=== PATIENT | male | born 1990 | race American Indian/Alaskan Native ===

== ENCOUNTER 2017-10-25 04:07 | Emergency (ER) | payer SELFPAY ==
[2017-10-25 05:08] VITALS: BP 108/55
--- NOTE | 2017-10-25 06:46 | Emergency Department Report ---
ED Rash HPI - HPI Chief Complaint: Skin Rash Stated Complaint: RASH ON NECK Time Seen by Provider: 10/25/17 06:42 Duration: 1-2 months Location: Neck Suspected Cause: Unknown Rash Symptoms: Yes Itching, No Facial Swelling, No Tongue/Oral Swelling, No Breathing Difficulties, No Choking Sensation, No Wheezing/Dyspnea, No Peeling, No Blistering, No Fever, No Lightheaded, No Malaise, No Myalgias Severity: mild Other History: cc of rash on back of neck x 2 months, states hes used hc creams wity no relief, states it itches intermittently and ibanez when sweating. pt stateas one of his dreds came out from the rash on the back of his scalp. he denies fever,chills,n/v/d. ED Review of Systems ROS: Stated complaint: RASH ON NECK Other details as noted in HPI Constitutional: denies: chills, fever Eyes: denies: eye pain, eye discharge, vision change ENT: denies: ear pain, throat pain Respiratory: denies: cough, shortness of breath, wheezing Cardiovascular: denies: chest pain, palpitations Endocrine: no symptoms reported Gastrointestinal: denies: abdominal pain, nausea, diarrhea Genitourinary: denies: urgency, dysuria Musculoskeletal: denies: back pain, joint swelling, arthralgia Skin: rash, pruritus. denies: lesions Neurological: denies: headache, weakness, paresthesias Psychiatric: denies: anxiety, depression Hematological/Lymphatic: denies: easy bleeding, easy bruising ED Past Medical Hx - Past Medical History Previous Medical History?: Yes Hx Congestive Heart Failure: No Hx Diabetes: No Hx Asthma: Yes Hx COPD: No Hx HIV: No - Surgical History Past Surgical History?: No - Social History Smoking Status: Former Smoker Substance Use Type: Alcohol, Marijuana - Medications Home Medications: Home Medications Medication Instructions Recorded Confirmed Last Taken Type ALBUTEROL NEB's [Proventil 0.083% 2.5 mg IH Q4H PRN #25 neb 03/25/16 Unknown Rx NEBS] Butalb/Acetamin/Caff 50-325-40 1 tab PO Q8HR PRN #12 tablet 03/25/16 Unknown Rx [Fioricet] Fluticasone (Nf) [Flovent Hfa(Nf)] 2 puff IH BID #1 inh 03/25/16 Unknown Rx Prednisone [predniSONE 5 mg (6-Day 5 mg PO .TAPER #1 tab.ds.pk 03/25/16 Unknown Rx Pack, 21 Tabs)] Hydroxyzine HCl 10 mg PO QHS #20 tablet 10/25/17 Unknown Rx Nystatin/Triamcin 1 applic TP BID 1 Days #1 tube 10/25/17 Unknown Rx [Nystatin-Triamcinolone Ointm] predniSONE [Deltasone] 10 mg PO QDAY #4 tab 10/25/17 Unknown Rx Rash Exam - Exam General: Vital signs noted. No distress. Alert and acting appropriately. HEENT: No Periorbital Edema, No Conjuctival Injection, No Chemosis, No Perioral Edema, No Tongue Edema, No Uvular Edema, No Compromised Airway, No Drooling Lungs: Yes Good Air Exchange, No Wheezes, No Ronchi, No Stridor, No Cough, No Labored Respirations, No Retractions, No Use of Accessory Muscles, No Other Abnormal Lung Sounds Heart: Yes Regular, No Murmur Front/Back of Body, Lg (Color): 1 - 2-3 grouped hypopigmented, raised border, non tender rash consistent with tinea Skin: Yes Maculopapular Rash, Yes Other (hypopigmented, raised with borders, non erythematous), No Urticarial Rash, No Morbilliform rash, No Bulla(e), No Excoriations, No Weeping, No Tenderness, No Erythema, No Edema, No Encrustations ED Course Vital Signs 10/25/17 10/25/17 04:41 05:07 Temperature 97.9 F Pulse Rate 61 Respiratory 18 Rate Blood Pressure 108/55 O2 Sat by Pulse 100 Oximetry ED Medical Decision Making - Medical Decision Making 27 y,o male presents with tinea coporis rash ED Course: Discussed with pt application of antifungal to get rid of rash Discuussed f/u with pcp in 1 week Discussed home meds VSS , pt is in no acute distress Discussed dermatology referral if symptoms persist with treatment . Discussed rt ED in any worsening or new onset of sx Critical care attestation.: If time is entered above; I have spent that time in minutes in the direct care of this critically ill patient, excluding procedure time. ED Disposition Clinical Impression: Tinea corporis Disposition: DC- TO HOME OR SELFCARE Is pt being admited?: No Does the pt Need Aspirin: No Condition: Stable Instructions: Tinea Corporis (ED), Tinea Capitis (ED), Antifungals (On the skin ) Additional Instructions: Follow up with pcp as discussed Take medication as prescribed If worsening symptoms return to ER Prescriptions: Hydroxyzine HCl 10 mg PO QHS #20 tablet Nystatin/Triamcin [Nystatin-Triamcinolone Ointm] 1 applic TP BID 1 Days #1 tube predniSONE [Deltasone] 10 mg PO QDAY #4 tab Referrals: PRIMARY CARE, [Primary Care Provider] - 3-5 Days [facility] [Outside] - 3-5 Days [facility] [Outside] - 3-5 Days ELISHA LOVE MD [Staff Physician] - 3-5 Days [facility] [Provider Group] - 3-5 Days Forms: Work/School Release Form(ED) Time of Disposition: 06:53
== END 2017-10-25 07:05 | disposition home or self-care (01) ==
LOC: ED 04:07
DX: B35.4 Tinea corporis (principal); J45.909 Unspecified asthma, uncomplicated; F12.10 Cannabis abuse, uncomplicated
CPT/HCPCS: 99282

== ENCOUNTER 2019-01-15 04:45 | Emergency (ER) | payer SELFPAY ==
[2019-01-15 04:50] VITALS: BP 127/90
[2019-01-15] MEDS ORDERED: DUONEB *Not for PRN Use IH ONE ×2 (05:00→05:04)
[2019-01-15] MEDS ORDERED: TYLENOL PO ONE (05:00)
[2019-01-15] MEDS ORDERED: SOLU-Medrol IM ONE (05:00)
[2019-01-15] MEDS ORDERED: TYLENOL ONE (05:03)
[2019-01-15] MEDS ORDERED: SOLU-Medrol ONE (05:05)
--- NOTE | 2019-01-15 05:39 | XRay Report ---
CHEST 2 VIEWS INDICATION / CLINICAL INFORMATION: dyspnea, asthma. COMPARISON: None FINDINGS: SUPPORT DEVICES: None. HEART / MEDIASTINUM: No significant abnormality. LUNGS / PLEURA: Hyperinflation of the lungs No pneumothorax. ADDITIONAL FINDINGS: No significant additional findings. IMPRESSION: Hyperinflation of the lungs. No other significant abnormality. Signer Name: Gilson Aguila MD FACR Signed: 01/15/2019 5:34 AM Workstation Name: [id number]
--- NOTE | 2019-01-15 05:46 | Emergency Department Report ---
ED General Adult HPI - General Chief complaint: Dyspnea/Respdistress Stated complaint: ASTHMA Time Seen by Provider: 01/15/19 05:00 Source: patient Mode of arrival: Ambulatory Limitations: No Limitations - History of Present Illness Initial comments: Patient is a pleasant 28-year-old -[place] male with a history of chronic asthma who presents to the ED with acute onset persistent shortness of breath, wheezing and dry cough for the last 2 hours. Patient states that he was in his usual state of health when he got into an argument with his girlfriend and developed intermittent shortness of breath and wheezing. Patient states that he does not have any bronchodilators at home whether a nebulizer or inhaler. Patient himself admits to continuing to smoke cigarettes despite his chronic asthma condition. Patient also complains of severe headache. Patient denies fever, chills, nausea, vomiting, chest pain, dizziness, change in vision, nasal and sinus congestion, sore throat, headache, abdominal pain, diaphoresis or neck pain. MD Complaint: asthma attack, dyspnea, dry cough, wheezing -: Sudden, hour(s) (2) Location: chest Radiation: non-radiation Severity scale (0 -10): 5 Quality: other (tightness) Consistency: constant Improves with: none Worsens with: none Associated Symptoms: denies other symptoms, cough, headaches, shortness of breath. denies: confusion, chest pain, diaphoresis, fever/chills, loss of appetite, malaise, nausea/vomiting, rash, seizure, syncope, weakness Treatments Prior to Arrival: none - Related Data Previous Rx's Medication Instructions Recorded Last Taken Type Butalb/Acetamin/Caff 50-325-40 1 tab PO Q8HR PRN #12 tablet 03/25/16 Unknown Rx [Fioricet] Fluticasone (Nf) [Flovent Hfa(Nf)] 2 puff IH BID #1 inh 03/25/16 Unknown Rx Prednisone [predniSONE 5 mg (6-Day 5 mg PO .TAPER #1 tab.ds.pk 03/25/16 Unknown Rx Pack, 21 Tabs)] Nystatin/Triamcin 1 applic TP BID 1 Days #1 tube 10/25/17 Unknown Rx [Nystatin-Triamcinolone Ointm] hydrOXYzine HCl [Hydroxyzine HCl] 10 mg PO QHS #20 tablet 10/25/17 Unknown Rx predniSONE [Deltasone] 10 mg PO QDAY #4 tab 10/25/17 Unknown Rx ALBUTEROL Inhaler(NF) [VENTOLIN 2 puff IH Q4-6H PRN #1 inha 05/01/18 Unknown Rx Inhaler(NF)] ALBUTEROL Inhaler (OR & NICU) 1 - 2 puff IH Q6H PRN #1 inhalation 01/15/19 Unknown Rx [ProAir HFA Inhaler] ALBUTEROL NEB's [Proventil 0.083% 2.5 mg IH Q4H PRN #75 neb 01/15/19 Unknown Rx NEBS] Prednisone [predniSONE 10 mg 10 mg PO .TAPER #21 tab.ds.pk 01/15/19 Unknown Rx (6-Day Pack, 21 Tabs)] Allergies Allergy/AdvReac Type Severity Reaction Status Date / Time amoxicillin AdvReac Swelling Verified 06/15/14 09:46 shellfish derived AdvReac Swelling Verified 06/15/14 09:46 ED Review of Systems ROS: Stated complaint: ASTHMA Other details as noted in HPI Constitutional: denies: chills, fever Eyes: denies: eye pain, eye discharge, vision change ENT: denies: ear pain, throat pain Respiratory: cough, shortness of breath, wheezing Cardiovascular: denies: chest pain, palpitations Endocrine: no symptoms reported Gastrointestinal: denies: abdominal pain, nausea, diarrhea Genitourinary: denies: urgency, dysuria Musculoskeletal: denies: back pain, joint swelling, arthralgia Skin: denies: rash, lesions Neurological: headache. denies: weakness, paresthesias Psychiatric: denies: anxiety, depression Hematological/Lymphatic: denies: easy bleeding, easy bruising ED Past Medical Hx - Past Medical History Previous Medical History?: Yes Hx Congestive Heart Failure: No Hx Diabetes: No Hx Asthma: Yes Hx COPD: No Hx HIV: No - Surgical History Past Surgical History?: No - Social History Smoking Status: Former Smoker Substance Use Type: Alcohol, Marijuana - Medications Home Medications: Home Medications Medication Instructions Recorded Confirmed Last Taken Type Butalb/Acetamin/Caff 50-325-40 1 tab PO Q8HR PRN #12 tablet 03/25/16 Unknown Rx [Fioricet] Fluticasone (Nf) [Flovent Hfa(Nf)] 2 puff IH BID #1 inh 03/25/16 Unknown Rx Prednisone [predniSONE 5 mg (6-Day 5 mg PO .TAPER #1 tab.ds.pk 03/25/16 Unknown Rx Pack, 21 Tabs)] Nystatin/Triamcin 1 applic TP BID 1 Days #1 tube 10/25/17 Unknown Rx [Nystatin-Triamcinolone Ointm] hydrOXYzine HCl [Hydroxyzine HCl] 10 mg PO QHS #20 tablet 10/25/17 Unknown Rx predniSONE [Deltasone] 10 mg PO QDAY #4 tab 10/25/17 Unknown Rx ALBUTEROL Inhaler(NF) [VENTOLIN 2 puff IH Q4-6H PRN #1 inha 05/01/18 Unknown Rx Inhaler(NF)] ALBUTEROL Inhaler (OR & NICU) 1 - 2 puff IH Q6H PRN #1 inhalation 01/15/19 Unknown Rx [ProAir HFA Inhaler] ALBUTEROL NEB's [Proventil 0.083% 2.5 mg IH Q4H PRN #75 neb 01/15/19 Unknown Rx NEBS] Prednisone [predniSONE 10 mg 10 mg PO .TAPER #21 tab.ds.pk 01/15/19 Unknown Rx (6-Day Pack, 21 Tabs)] ED Physical Exam - General Limitations: No Limitations General appearance: alert, in no apparent distress - Head Head exam: Present: atraumatic, normocephalic, normal inspection - Eye Eye exam: Present: normal appearance, PERRL, EOMI Pupils: Present: normal accommodation - ENT ENT exam: Present: normal exam, normal orophraynx, mucous membranes moist, TM's normal bilaterally, normal external ear exam - Neck Neck exam: Present: normal inspection, full ROM - Respiratory Respiratory exam: Present: normal lung sounds bilaterally, wheezes. Absent: respiratory distress, rhonchi, stridor, chest wall tenderness, accessory muscle use, decreased breath sounds, prolonged expiratory - Cardiovascular Cardiovascular Exam: Present: regular rate, normal rhythm, normal heart sounds. Absent: systolic murmur, diastolic murmur, rubs, gallop - GI/Abdominal GI/Abdominal exam: Present: soft, normal bowel sounds. Absent: tenderness, guarding, rebound, hyperactive bowel sounds - Rectal Rectal exam: Present: deferred - Extremities Exam Extremities exam: Present: normal inspection, full ROM, normal capillary refill - Back Exam Back exam: Present: normal inspection, full ROM. Absent: tenderness, CVA tenderness (R), CVA tenderness (L), muscle spasm, paraspinal tenderness, vertebral tenderness - Neurological Exam Neurological exam: Present: alert, oriented X3, CN II-XII intact, normal gait, reflexes normal - Psychiatric Psychiatric exam: Present: normal affect, normal mood - Skin Skin exam: Present: warm, dry, intact, normal color. Absent: rash ED Course Vital Signs 01/15/19 04:48 Temperature 97.3 F L Pulse Rate 75 Respiratory 20 Rate Blood Pressure 127/90 O2 Sat by Pulse 99 Oximetry - Reevaluation(s) Reevaluation #1: 01/15/19 05:59 This is a 28-year-old -[place] male with a history of chronic asthma who presented to the ED with acute exacerbation of his chronic asthma, characterized by shortness of breath, dry cough and wheezing. In the ED patient is alert and oriented 3 and is not in any distress with normal vital signs. Patient received DuoNeb treatment in the ED with Solu-Medrol and Tylenol for headache. Chest x-ray shows no acute cardiopulmonary abnormalities. On reevaluation, patient's wheezing has resolved, and air movement within the lungs have normalized. Patient was discharged home with a prescription for albuterol inhaler and nebulizers, as well as Medrol Dosepak and advised to follow-up with his primary care physician in [place] to 3-5 days for reevaluation or return to the ED immediately if symptoms get worse. ED Medical Decision Making - Radiology Data Radiology results: report reviewed, image reviewed Chest x-ray: No acute cardiopulmonary abnormalities - Medical Decision Making This is a 28-year-old -[place] male with a history of chronic asthma who presented to the ED with acute exacerbation of his chronic asthma, characterized by shortness of breath, dry cough and wheezing. In the ED patient is alert and oriented 3 and is not in any distress with normal vital signs. Patient received DuoNeb treatment in the ED with Solu-Medrol and Tylenol for headache. Chest x-ray shows no acute cardiopulmonary abnormalities. On reevaluation, patient's wheezing has resolved, and air movement within the lungs have normalized. Patient was discharged home with a prescription for albuterol inhaler and nebulizers, as well as Medrol Dosepak and advised to follow-up with his primary care physician in [place] to 3-5 days for reevaluation or return to the ED immediately if symptoms get worse. - Differential Diagnosis asthma attack; acute bronchitis; dyspnea, pneumonia Critical care attestation.: If time is entered above; I have spent that time in minutes in the direct care of this critically ill patient, excluding procedure time. ED Disposition Clinical Impression: Shortness of breath, Acute asthmatic bronchitis, Anxiety as acute reaction to exceptional stress Asthma attack Qualifiers: Asthma severity: mild Asthma persistence: intermittent Qualified Code(s): J45.21 - Mild intermittent asthma with (acute) exacerbation Acute bronchitis Qualifiers: Bronchitis organism: unspecified organism Qualified Code(s): J20.9 - Acute b ronchitis, unspecified Disposition: - TO HOME OR SELFCARE Is pt being admited?: No Does the pt Need Aspirin: No Condition: Stable Instructions: Asthma (ED), Acute Bronchitis (ED), Dyspnea (ED) Additional Instructions: TAKE MEDICATIONS WITH FOOD DRINK PLENTY OF FLUIDS AND FOLLOW UP WITH YOUR PRIMARY CARE PHYSICIAN ADVISED. RETURN TO THE ED IMMEDIATELY IF SYMPTOMS GET WORSE. Prescriptions: Prednisone [predniSONE 10 mg (6-Day Pack, 21 Tabs)] 10 mg PO .TAPER #21 tab.ds.pk ALBUTEROL Inhaler (OR & NICU) [ProAir HFA Inhaler] 1 - 2 puff IH Q6H PRN #1 inhalation PRN Reason: Shortness Of Breath ALBUTEROL NEB's [Proventil 0.083% NEBS] 2.5 mg IH Q4H PRN #75 neb PRN Reason: Shortness Of Breath Referrals: ERASMO DUARTE MD [Primary Care Provider] - 3-5 Days Time of Disposition: 05:43 Print Language: BELARUSIAN
== END 2019-01-15 06:11 | disposition home or self-care (01) ==
LOC: ED 04:45
DX: J45.909 Unspecified asthma, uncomplicated (principal); J20.9 Acute bronchitis, unspecified; F41.9 Anxiety disorder, unspecified; F12.10 Cannabis abuse, uncomplicated; Z87.891 Personal history of nicotine dependence; Z79.899 Other long term (current) drug therapy; Z91.013 Allergy to seafood; Z88.1 Allergy status to other antibiotic agents
CPT/HCPCS: 71046; 96372; 99283; J2930

== ENCOUNTER 2019-05-02 05:23 | Emergency (ER) | payer SELFPAY ==
[2019-05-02 05:29] VITALS: BP 141/72
[2019-05-02] MEDS ORDERED: IPRATROPIUM/ALBUTEROL SULFATE 3 ML AMPUL.NEB IH ONE (05:30)
[2019-05-02] MEDS ORDERED: diphenhydrAMINE 25 MG CAP PO STA (05:52)
[2019-05-02] MEDS ORDERED: predniSONE 50 MG TAB PO STA (05:52)
--- NOTE | 2019-05-02 06:27 | Emergency Department Report ---
ED Asthma HPI - General Chief Complaint: Adult Asthma Stated Complaint: ASTHMA Time Seen by Provider: 05/02/19 05:48 Source: patient Mode of arrival: Ambulatory Limitations: No Limitations - History of Present Illness Initial Comments: 28-year-old -[place] male that ran out of his asthma medication was sleeping at home when he woke up to 2 a sensation of tightness in the chest with wheezing and mild nonproductive coughing. No fever, chills, sweats no hemoptysis no hematemesis nor hematochezia. No palpitations no nausea or vomiting. He reports not been around any noxious chemicals may have stimulated of the wheezing. He feels if he receives a a refill of his medication he will be fine MD Complaint: shortness of breath, wheezing Asthma History: childhood onset Severity: mild, moderate Context: ran out of meds - Related Data Previous Rx's Medication Instructions Recorded Last Taken Type Butalb/Acetamin/Caff 50-325-40 1 tab PO Q8HR PRN #12 tablet 03/25/16 Unknown Rx [Fioricet] Fluticasone (Nf) [Flovent Hfa(Nf)] 2 puff IH BID #1 inh 03/25/16 Unknown Rx Prednisone [predniSONE 5 mg (6-Day 5 mg PO .TAPER #1 tab.ds.pk 03/25/16 Unknown Rx Pack, 21 Tabs)] Nystatin/Triamcin 1 applic TP BID 1 Days #1 tube 10/25/17 Unknown Rx [Nystatin-Triamcinolone Ointm] hydrOXYzine HCl [Hydroxyzine HCl] 10 mg PO QHS #20 tablet 10/25/17 Unknown Rx predniSONE [Deltasone] 10 mg PO QDAY #4 tab 10/25/17 Unknown Rx ALBUTEROL Inhaler(NF) [VENTOLIN 2 puff IH Q4-6H PRN #1 inha 05/01/18 Unknown Rx Inhaler(NF)] ALBUTEROL Inhaler (OR & NICU) 1 - 2 puff IH Q6H PRN #1 inhalation 01/15/19 Unknown Rx [ProAir HFA Inhaler] ALBUTEROL NEB's [Proventil 0.083% 2.5 mg IH Q4H PRN #75 neb 01/15/19 Unknown Rx NEBS] Prednisone [predniSONE 10 mg 10 mg PO .TAPER #21 tab.ds.pk 01/15/19 Unknown Rx (6-Day Pack, 21 Tabs)] ALBUTEROL Inhaler (OR & NICU) 2 puff IH QID PRN #1 inhalation 05/02/19 Unknown Rx [ProAir HFA Inhaler] Montelukast [Singulair] 10 mg PO QPM #14 tablet 05/02/19 Unknown Rx predniSONE [Deltasone] 50 mg PO QDAY #5 tab 05/02/19 Unknown Rx Allergies Allergy/AdvReac Type Severity Reaction Status Date / Time amoxicillin AdvReac Swelling Verified 06/15/14 09:46 shellfish derived AdvReac Swelling Verified 06/15/14 09:46 ED Review of Systems ROS: Stated complaint: ASTHMA Other details as noted in HPI Comment: All other systems reviewed and negative ED Past Medical Hx - Past Medical History Hx Congestive Heart Failure: No Hx Diabetes: No Hx Asthma: Yes Hx COPD: No Hx HIV: No - Surgical History Past Surgical History?: No - Social History Smoking Status: Never Smoker - Medications Home Medications: Home Medications Medication Instructions Recorded Confirmed Last Taken Type Butalb/Acetamin/Caff 50-325-40 1 tab PO Q8HR PRN #12 tablet 03/25/16 Unknown Rx [Fioricet] Fluticasone (Nf) [Flovent Hfa(Nf)] 2 puff IH BID #1 inh 03/25/16 Unknown Rx Prednisone [predniSONE 5 mg (6-Day 5 mg PO .TAPER #1 tab.ds.pk 03/25/16 Unknown Rx Pack, 21 Tabs)] Nystatin/Triamcin 1 applic TP BID 1 Days #1 tube 10/25/17 Unknown Rx [Nystatin-Triamcinolone Ointm] hydrOXYzine HCl [Hydroxyzine HCl] 10 mg PO QHS #20 tablet 10/25/17 Unknown Rx predniSONE [Deltasone] 10 mg PO QDAY #4 tab 10/25/17 Unknown Rx ALBUTEROL Inhaler(NF) [VENTOLIN 2 puff IH Q4-6H PRN #1 inha 05/01/18 Unknown Rx Inhaler(NF)] ALBUTEROL Inhaler (OR & NICU) 1 - 2 puff IH Q6H PRN #1 inhalation 01/15/19 Unknown Rx [ProAir HFA Inhaler] ALBUTEROL NEB's [Proventil 0.083% 2.5 mg IH Q4H PRN #75 neb 01/15/19 Unknown Rx NEBS] Prednisone [predniSONE 10 mg 10 mg PO .TAPER #21 tab.ds.pk 01/15/19 Unknown Rx (6-Day Pack, 21 Tabs)] ALBUTEROL Inhaler (OR & NICU) 2 puff IH QID PRN #1 inhalation 05/02/19 Unknown Rx [ProAir HFA Inhaler] Montelukast [Singulair] 10 mg PO QPM #14 tablet 05/02/19 Unknown Rx predniSONE [Deltasone] 50 mg PO QDAY #5 tab 05/02/19 Unknown Rx ED Physical Exam - General Limitations: No Limitations General appearance: alert, in no apparent distress, other (no respiratory distress speaking in full sentences) - Head Head exam: Present: atraumatic, normocephalic - Eye Eye exam: Present: normal appearance, PERRL, EOMI - ENT ENT exam: Present: mucous membranes moist - Neck Neck exam: Present: normal inspection - Respiratory Respiratory exam: Present: normal lung sounds bilaterally, wheezes. Absent: respiratory distress, rales, rhonchi, stridor, chest wall tenderness, accessory muscle use, decreased breath sounds - Cardiovascular Cardiovascular Exam: Present: regular rate, normal rhythm. Absent: systolic murmur, diastolic murmur, rubs, gallop - GI/Abdominal GI/Abdominal exam: Present: soft, normal bowel sounds - Rectal Rectal exam: Present: deferred - Extremities Exam Extremities exam: Present: normal inspection, full ROM, normal capillary refill. Absent: pedal edema - Back Exam Back exam: Present: normal inspection. Absent: CVA tenderness (R), CVA tenderness (L) - Neurological Exam Neurological exam: Present: alert, oriented X3, CN II-XII intact, normal gait - Psychiatric Psychiatric exam: Present: normal affect, normal mood - Skin Skin exam: Present: warm, dry, intact, normal color. Absent: rash ED Course Vital Signs 05/02/19 05:28 Temperature 97.5 F L Pulse Rate 71 Respiratory 18 Rate Blood Pressure 141/72 O2 Sat by Pulse 93 Oximetry - Reevaluation(s) Reevaluation #1: 05/02/19 06:27 Patient received steroids and albuterol reports he states he feels better following the treatment. Respiratory therapy was alerted to review peak flow meters with Mr. Tong in efforts to prevent future asthma exacerbations ED Medical Decision Making - Radiology Data Radiology results: report reviewed [facility] [address] [place] [address] XRay Report Signed Patient: MARIE TONG MR# : [id number] : 1990 Acct:[id number] Age/Sex: 28 / M ADM Date: 05/02/19 Loc: ED Attending Dr: Ordering Physician: AVERY BURNETT Date of Service: 05/02/19 Procedure(s): XR chest routine 2V Accession Number(s): [id number] cc: AVERY BURNETT Fluoro Time In Minutes: CHEST 2 VIEWS INDICATION: wheezing. COMPARISON: 01/15/2019. FINDINGS: Support devices: None. Heart: Within normal limits. Lungs/Pleura: No acute air space or interstitial disease. No significant pleural effusion. IMPRESSION: No acute findings. Signer Name: Praful Joy MD Signed: 05/02/2019 6:22 AM Workstation Name: [id number] Transcribed By: ES Dictated By: Praful Joy MD Electronically Authenticated By: Praful Joy MD Signed Date/Time: 05/02/19621 DD/ 0 - Medical Decision Making Patient presenting with shortness of breath. Given exam and history, suspect likely acute asthma exacerbation without_ status asthmaticus. These constellation of symptoms are similar to prior flares without overt deviations from normal exacerbations. Given clinical findings and history, low suspicion for pneumonia, pneumothorax, or acute valvular failure. Patient with minimal risk factors for pulmonary embolism and atypical ACS. Chest x-ray was obtained and showed no acute processes. He showed great response to the albuterol treatment a sterile brought in the emergency department. As such, will trial bronchodilators, steroids, monitor respiratory status closely, reassess. Critical care attestation.: If time is entered above; I have spent that time in minutes in the direct care of this critically ill patient, excluding procedure time. ED Disposition Clinical Impression: Asthma attack Disposition: DC-01 TO HOME OR SELFCARE Is pt being admited?: No Does the pt Need Aspirin: No Condition: Stable Additional Instructions: You should return to the hospital if: you begin to develop worsening shortness of breath/difficulty breathing despite treatment with your prescribed medications, if you develop fevers for greater than 2 days, worsening cough, or for any other concerns with your breathing or any other problems. For more information on Asthma please visit the [employer]'s Website at: [email or web address] Prescriptions: predniSONE [Deltasone] 50 mg PO QDAY #5 tab ALBUTEROL Inhaler (OR & NICU) [ProAir HFA Inhaler] 2 puff IH QID PRN #1 inhalation PRN Reason: Shortness Of Breath Montelukast [Singulair] 10 mg PO QPM #14 tablet Referrals: [facility] [Provider Group] - 3-5 Days
== END 2019-05-02 07:00 | disposition home or self-care (01) ==
LOC: ED 05:23
DX: J45.901 Unspecified asthma with (acute) exacerbation (principal); Z79.899 Other long term (current) drug therapy; Z88.1 Allergy status to other antibiotic agents; Z91.013 Allergy to seafood
CPT/HCPCS: 71046; 94640; 99283; J7512

== ENCOUNTER 2020-09-04 13:42 | Emergency (ER) | payer SELFPAY ==
[2020-09-04 13:54] VITALS: BP 116/80
--- NOTE | 2020-09-04 15:08 | Event Note ---
ED Screening Note Date of service: 09/04/20 Time: 15:04 ED Screening Note: 29-year-old -[place] male presents to the emergency room for asthma flareup. Patient states that he uses last pump while he was at work today. Patient states he has intermittent asthma flareups. Reports he does not have a primary care provider. This initial assessment/diagnostic orders/clinical plan/treatment(s) is/are subject to change based on patients health status, clinical progression and re-assessment by fellow clinical providers in the ED. Further treatment and workup at subsequent clinical providers discretion. Patient/guardian urged not to elope from the ED as their condition may be serious if not clinically assessed and managed. Initial orders include:
[2020-09-04] MEDS ORDERED: predniSONE 20 MG TAB PO NR (16:00)
[2020-09-04] MEDS ORDERED: IPRATROPIUM 0.02% NEBU 2.5 ML IH ONE (19:18)
[2020-09-04] MEDS ORDERED: dexAMETHasone 20 MG/5 ML VIAL IM ONE (19:18)
[2020-09-04] MEDS ORDERED: ALBUTEROL 2.5 MG/3 ML NEBU IH ONE (19:18)
[2020-09-04] MEDS: IPRATROPIUM 0.02% NEBU 2.5 ML IH ONE ×2 (19:23→19:34)
[2020-09-04] MEDS: ALBUTEROL 2.5 MG/3 ML NEBU IH ONE ×2 (19:24→19:34)
--- NOTE | 2020-09-04 19:48 | Emergency Department Report ---
ED Asthma HPI - General Chief Complaint: Adult Asthma Stated Complaint: ASTHMA ATTACK Time Seen by Provider: 09/04/20 19:15 Source: patient Mode of arrival: Ambulatory Limitations: No Limitations - History of Present Illness Initial Comments: This is a 29-year-old male nontoxic, well nourished in appearance, no acute signs of distress presents to the ED with c/o of acute on chronic asthma exacerbation. Patient stated he is out of his albuterol inhaler since yesterday as he used last. Patient denies any cough. Patient denies any sick contact. Patient denies any recent travels, long car, recent hospital stays. Patient denies any calf pain or calf tenderness. Patient denies any chest pain, short of breath, fever, chills, nausea, vomiting, hemoptysis, numbness, tingling, headache or stiff neck. Past medical history includes asthma. Patient stated allergies to amoxicillin. MD Complaint: "asthma attack", wheezing -: days(s) Severity: mild Context: none known Associated Symptoms: none. denies: productive cough, dry cough, fever, chest pain, hemoptysis, leg edema, syncope - Related Data Current Asthma Therapy: none Previous Rx's Medication Instructions Recorded Last Taken Type Butalb/Acetamin/Caff 50-325-40 1 tab PO Q8HR PRN #12 tablet 03/25/16 Unknown Rx [Fioricet] Fluticasone (Nf) [Flovent Hfa(Nf)] 2 puff IH BID #1 inh 03/25/16 Unknown Rx Prednisone [predniSONE 5 mg (6-Day 5 mg PO .TAPER #1 tab.ds.pk 03/25/16 Unknown Rx Pack, 21 Tabs)] Nystatin/Triamcin 1 applic TP BID 1 Days #1 tube 10/25/17 Unknown Rx [Nystatin-Triamcinolone Ointm] hydrOXYzine HCL [Hydroxyzine HCl] 10 mg PO QHS #20 tablet 10/25/17 Unknown Rx predniSONE 10 mg PO QDAY #4 tab 10/25/17 Unknown Rx ALBUTEROL Inhaler(NF) [VENTOLIN 2 puff IH Q4-6H PRN #1 inha 05/01/18 Unknown Rx Inhaler(NF)] ALBUTEROL NEB's [Proventil 0.083% 2.5 mg IH Q4H PRN #75 neb 01/15/19 Unknown Rx NEBS] Albuterol Mdi (or & Nicu Only) 1 - 2 puff IH Q6H PRN #1 inhalation 01/15/19 Unknown Rx [ProAir HFA Inhaler] Prednisone [predniSONE 10 mg 10 mg PO .TAPER #21 tab.ds.pk 01/15/19 Unknown Rx (6-Day Pack, 21 Tabs)] Albuterol Mdi (or & Nicu Only) 2 puff IH QID PRN #1 inhalation 05/02/19 Unknown Rx [ProAir HFA Inhaler] Montelukast [Singulair] 10 mg PO QPM #14 tablet 05/02/19 Unknown Rx predniSONE [Deltasone] 50 mg PO QDAY #5 tab 05/02/19 Unknown Rx Albuterol Sulfate [Proventil Hfa] 6.7 gm IH QID PRN #1 hfa.aer.ad 06/13/19 Unknown Rx Oseltamivir [Tamiflu] 75 mg PO BID 5 Days #10 cap 06/13/19 Unknown Rx predniSONE [Deltasone] 20 mg PO QDAY #5 tab 06/13/19 Unknown Rx Albuterol Mdi (or & Nicu Only) 2 puff IH QID PRN #8.5 gram 09/04/20 Unknown Rx [ProAir HFA Inhaler] Prednisone [predniSONE 10 mg 10 mg PO .TAPER #1 tab.ds.pk 09/04/20 Unknown Rx (6-Day Pack, 21 Tabs)] Allergies Allergy/AdvReac Type Severity Reaction Status Date / Time amoxicillin AdvReac Swelling Verified 06/15/14 09:46 shellfish derived AdvReac Swelling Verified 06/15/14 09:46 ED Review of Systems ROS: Stated complaint: ASTHMA ATTACK Other details as noted in HPI Constitutional: denies: chills, fever Eyes: denies: eye pain, eye discharge, vision change ENT: denies: ear pain, throat pain Respiratory: wheezing. denies: cough, shortness of breath Cardiovascular: denies: chest pain, palpitations Endocrine: no symptoms reported Gastrointestinal: denies: abdominal pain, nausea, diarrhea Genitourinary: denies: urgency, dysuria Musculoskeletal: denies: back pain, joint swelling, arthralgia Skin: denies: rash, lesions Neurological: denies: headache, weakness, paresthesias Psychiatric: denies: anxiety, depression Hematological/Lymphatic: denies: easy bleeding, easy bruising ED Past Medical Hx - Past Medical History Previous Medical History?: Yes Hx Congestive Heart Failure: No Hx Diabetes: No Hx Asthma: Yes Hx COPD: No Hx HIV: No - Social History Smoking Status: Never Smoker - Medications Home Medications: Home Medications Medication Instructions Recorded Confirmed Last Taken Type Butalb/Acetamin/Caff 50-325-40 1 tab PO Q8HR PRN #12 tablet 03/25/16 Unknown Rx [Fioricet] Fluticasone (Nf) [Flovent Hfa(Nf)] 2 puff IH BID #1 inh 03/25/16 Unknown Rx Prednisone [predniSONE 5 mg (6-Day 5 mg PO .TAPER #1 tab.ds.pk 03/25/16 Unknown Rx Pack, 21 Tabs)] Nystatin/Triamcin 1 applic TP BID 1 Days #1 tube 10/25/17 Unknown Rx [Nystatin-Triamcinolone Ointm] hydrOXYzine HCL [Hydroxyzine HCl] 10 mg PO QHS #20 tablet 10/25/17 Unknown Rx predniSONE 10 mg PO QDAY #4 tab 10/25/17 Unknown Rx ALBUTEROL Inhaler(NF) [VENTOLIN 2 puff IH Q4-6H PRN #1 inha 05/01/18 Unknown Rx Inhaler(NF)] ALBUTEROL NEB's [Proventil 0.083% 2.5 mg IH Q4H PRN #75 neb 01/15/19 Unknown Rx NEBS] Albuterol Mdi (or & Nicu Only) 1 - 2 puff IH Q6H PRN #1 inhalation 01/15/19 Unknown Rx [ProAir HFA Inhaler] Prednisone [predniSONE 10 mg 10 mg PO .TAPER #21 tab.ds.pk 01/15/19 Unknown Rx (6-Day Pack, 21 Tabs)] Albuterol Mdi (or & Nicu Only) 2 puff IH QID PRN #1 inhalation 05/02/19 Unknown Rx [ProAir HFA Inhaler] Montelukast [Singulair] 10 mg PO QPM #14 tablet 05/02/19 Unknown Rx predniSONE [Deltasone] 50 mg PO QDAY #5 tab 05/02/19 Unknown Rx Albuterol Sulfate [Proventil Hfa] 6.7 gm IH QID PRN #1 hfa.aer.ad 06/13/19 Unknown Rx Oseltamivir [Tamiflu] 75 mg PO BID 5 Days #10 cap 06/13/19 Unknown Rx predniSONE [Deltasone] 20 mg PO QDAY #5 tab 06/13/19 Unknown Rx Albuterol Mdi (or & Nicu Only) 2 puff IH QID PRN #8.5 gram 09/04/20 Unknown Rx [ProAir HFA Inhaler] Prednisone [predniSONE 10 mg 10 mg PO .TAPER #1 tab.ds.pk 09/04/20 Unknown Rx (6-Day Pack, 21 Tabs)] ED Physical Exam - General Limitations: No Limitations General appearance: alert, in no apparent distress - Head Head exam: Present: atraumatic, normocephalic - Eye Eye exam: Present: normal appearance - Neck Neck exam: Present: normal inspection, full ROM. Absent: tenderness, meningismus, lymphadenopathy - Respiratory Respiratory exam: Present: wheezes (Bilateral expiratory wheezing). Absent: respiratory distress, rales, rhonchi, stridor, chest wall tenderness, accessory muscle use, decreased breath sounds, prolonged expiratory - Cardiovascular Cardiovascular Exam: Present: regular rate, normal rhythm, normal heart sounds. Absent: bradycardia, tachycardia, irregular rhythm, systolic murmur, diastolic murmur, rubs, gallop - Extremities Exam Extremities exam: Present: full ROM - Back Exam Back exam: Present: normal inspection, full ROM - Neurological Exam Neurological exam: Present: alert, oriented X3, normal gait - Psychiatric Psychiatric exam: Present: normal affect, normal mood - Skin Skin exam: Present: warm, dry, intact, normal color. Absent: rash ED Course Vital Signs 09/04/20 13:53 Temperature 97.9 F Pulse Rate 85 Respiratory 18 Rate Blood Pressure 116/80 [Right] O2 Sat by Pulse 98 Oximetry - Reevaluation(s) Reevaluation #1: 09/04/20 19:47 Patient is speaking in full sentences with no signs of distress noted. ED Medical Decision Making - Medical Decision Making This is a 29-year-old male that presents with asthma exacerbation. Patient is stable and was examined by me. Patient is notified of the x-ray report with no questions noted by the patient. Patient did receive breathing treatment and steroids in the ED which patient the symptoms has resolved and subsided. Posttreatment and there is no wheezing upon auscultation. Patient is discharged with albuterol and prednisone. Patient was referred to Follow-up with a primary care doctor in 3-5 days or if symptoms worsen and continue return to emergency room as soon as possible. At time of discharge, the patient does not seem toxic or ill in appearance. No acute signs of distress noted. Patient agrees to discharge treatment plan of care. No further questions noted by the patient. This chart is dictated with using [employer]ation Program Critical care attestation.: If time is entered above; I have spent that time in minutes in the direct care of this critically ill patient, excluding procedure time. ED Disposition Clinical Impression: Asthma exacerbation Qualifiers: Asthma severity: mild Asthma persistence: intermittent Qualified Code(s): J45.21 - Mild intermittent asthma with (acute) exacerbation Disposition: TO HOME OR SELFCARE Is pt being admited?: No Does the pt Need Aspirin: No Condition: Stable Instructions: Asthma, Adult Additional Instructions: Follow-up with a primary care doctor in 3-5 days or if symptoms worsen and continue return to emergency room as soon as possible. Prescriptions: Prednisone [predniSONE 10 mg (6-Day Pack, 21 Tabs)] 10 mg PO .TAPER #1 tab.ds.pk Albuterol Mdi (or & Nicu Only) [ProAir HFA Inhaler] 2 puff IH QID PRN #8.5 gram PRN Reason: Shortness Of Breath Referrals: PRIMARY CAREMD [Primary Care Provider] - 3-5 Days ANNA BOATENG MD [Staff Physician] - 3-5 Days Forms: Work/School Release Form(ED) Time of Disposition: 20:43
== END 2020-09-04 21:01 | disposition home or self-care (01) ==
LOC: ED 13:42
DX: J45.901 Unspecified asthma with (acute) exacerbation (principal); Z79.899 Other long term (current) drug therapy; Z91.013 Allergy to seafood; Z88.0 Allergy status to penicillin
CPT/HCPCS: 94640; 96372; 99282; J1100

== ENCOUNTER 2020-10-25 20:08 | Observation (INO) | payer OTHER ==
[2020-10-25] MEDS ORDERED: SODIUM CHLORIDE 0.9% 1000 ML 1,000 ML IV ONE (22:20)
[2020-10-25] MEDS ORDERED: methylPREDNISolone Sod Succinate 125 MG/2 ML INJ IV ONE (22:20)
[2020-10-25] MEDS ORDERED: IPRATROPIUM 0.02% NEBU 2.5 ML IH ONE (22:21)
[2020-10-25] MEDS ORDERED: MAGNESIUM SULFATE 2 GM/50 ML BAG IV ONE (22:21)
[2020-10-25] MEDS ORDERED: ALBUTEROL 2.5 MG/3 ML NEBU IH ONE (22:21)
--- NOTE | 2020-10-25 22:25 | Emergency Department Report ---
ED Chest Pain HPI - General Chief Complaint: Chest Pain Stated Complaint: CHEST PAIN/ASTHMA Time Seen by Provider: 10/25/20 22:15 Source: patient Mode of arrival: Ambulatory Limitations: No Limitations - History of Present Illness Initial Comments: This is a 30-year-old -[place] male who presents to the emergency department with a complaint of a 3-day history of some generalized chest discomfort, shortness of breath, wheezing, mixed dry and productive cough. The patient started a new job 3 days ago and says that originally it felt like he w as having some sinus issues prior to the other symptoms starting. Over the past 2 days he has been using his nebulizer machine multiple times without any relief. He denies any other past medical history. He took a trip down to [place] about 2 weeks ago. He denies any lower extremity swelling. He denies any tobacco use. No sick contacts at home. His symptoms worsen with exertion. No known alleviating factors. - Related Data Previous Rx's Medication Instructions Recorded Last Taken Type Butalb/Acetamin/Caff 50-325-40 1 tab PO Q8HR PRN #12 tablet 03/25/16 Unknown Rx [Fioricet] Fluticasone (Nf) [Flovent Hfa(Nf)] 2 puff IH BID #1 inh 03/25/16 Unknown Rx Prednisone [predniSONE 5 mg (6-Day 5 mg PO .TAPER #1 tab.ds.pk 03/25/16 Unknown Rx Pack, 21 Tabs)] Nystatin/Triamcin 1 applic TP BID 1 Days #1 tube 10/25/17 Unknown Rx [Nystatin-Triamcinolone Ointm] hydrOXYzine HCL [Hydroxyzine HCl] 10 mg PO QHS #20 tablet 10/25/17 Unknown Rx predniSONE 10 mg PO QDAY #4 tab 10/25/17 Unknown Rx ALBUTEROL Inhaler(NF) [VENTOLIN 2 puff IH Q4-6H PRN #1 inha 05/01/18 Unknown Rx Inhaler(NF)] ALBUTEROL NEB's [Proventil 0.083% 2.5 mg IH Q4H PRN #75 neb 01/15/19 Unknown Rx NEBS] Albuterol Mdi (or & Nicu Only) 1 - 2 puff IH Q6H PRN #1 inhalation 01/15/19 Unknown Rx [ProAir HFA Inhaler] Prednisone [predniSONE 10 mg 10 mg PO .TAPER #21 tab.ds.pk 01/15/19 Unknown Rx (6-Day Pack, 21 Tabs)] Albuterol Mdi (or & Nicu Only) 2 puff IH QID PRN #1 inhalation 05/02/19 Unknown Rx [ProAir HFA Inhaler] Montelukast [Singulair] 10 mg PO QPM #14 tablet 05/02/19 Unknown Rx predniSONE [Deltasone] 50 mg PO QDAY #5 tab 05/02/19 Unknown Rx Albuterol Sulfate [Proventil Hfa] 6.7 gm IH QID PRN #1 hfa.aer.ad 06/13/19 Unknown Rx Oseltamivir [Tamiflu] 75 mg PO BID 5 Days #10 cap 06/13/19 Unknown Rx predniSONE [Deltasone] 20 mg PO QDAY #5 tab 06/13/19 Unknown Rx Albuterol Mdi (or & Nicu Only) 2 puff IH QID PRN #8.5 gram 09/04/20 Unknown Rx [ProAir HFA Inhaler] Prednisone [predniSONE 10 mg 10 mg PO .TAPER #1 tab.ds.pk 09/04/20 Unknown Rx (6-Day Pack, 21 Tabs)] Allergies Allergy/AdvReac Type Severity Reaction Status Date / Time amoxicillin AdvReac Swelling Verified 06/15/14 09:46 shellfish derived AdvReac Swelling Verified 06/15/14 09:46 Heart Score - HEART Score History: Slightly suspicious EKG: Non-specific Age: < 45 Risk factors: No known risk factors Troponin: < normal limit HEART Score: 1 - EKG Read Time Time EKG Completed: 21:39 EKG Read Time: 21:41 ED Review of Systems ROS: Stated complaint: CHEST PAIN/ASTHMA Other details as noted in HPI Comment: All other systems reviewed and negative Constitutional: denies: chills, malaise Eyes: denies: eye pain, vision change ENT: denies: ear pain, throat pain Respiratory: cough, shortness of breath, SOB with exertion, wheezing Cardiovascular: chest pain Gastrointestinal: denies: abdominal pain, vomiting Genitourinary: denies: dysuria, discharge Musculoskeletal: denies: back pain, arthralgia Skin: denies: rash, lesions Neurological: denies: headache, weakness ED Past Medical Hx - Past Medical History Previous Medical History?: Yes Hx Congestive Heart Failure: No Hx Diabetes: No Hx Asthma: Yes Hx COPD: No Hx HIV: No - Surgical History Past Surgical History?: No - Social History Smoking Status: Never Smoker Substance Use Type: None - Medications Home Medications: Home Medications Medication Instructions Recorded Confirmed Last Taken Type Butalb/Acetamin/Caff 50-325-40 1 tab PO Q8HR PRN #12 tablet 03/25/16 Unknown Rx [Fioricet] Fluticasone (Nf) [Flovent Hfa(Nf)] 2 puff IH BID #1 inh 03/25/16 Unknown Rx Prednisone [predniSONE 5 mg (6-Day 5 mg PO .TAPER #1 tab.ds.pk 03/25/16 Unknown Rx Pack, 21 Tabs)] Nystatin/Triamcin 1 applic TP BID 1 Days #1 tube 10/25/17 Unknown Rx [Nystatin-Triamcinolone Ointm] hydrOXYzine HCL [Hydroxyzine HCl] 10 mg PO QHS #20 tablet 10/25/17 Unknown Rx predniSONE 10 mg PO QDAY #4 tab 10/25/17 Unknown Rx ALBUTEROL Inhaler(NF) [VENTOLIN 2 puff IH Q4-6H PRN #1 inha 05/01/18 Unknown Rx Inhaler(NF)] ALBUTEROL NEB's [Proventil 0.083% 2.5 mg IH Q4H PRN #75 neb 01/15/19 Unknown Rx NEBS] Albuterol Mdi (or & Nicu Only) 1 - 2 puff IH Q6H PRN #1 inhalation 01/15/19 Unknown Rx [ProAir HFA Inhaler] Prednisone [predniSONE 10 mg 10 mg PO .TAPER #21 tab.ds.pk 01/15/19 Unknown Rx (6-Day Pack, 21 Tabs)] Albuterol Mdi (or & Nicu Only) 2 puff IH QID PRN #1 inhalation 05/02/19 Unknown Rx [ProAir HFA Inhaler] Montelukast [Singulair] 10 mg PO QPM #14 tablet 05/02/19 Unknown Rx predniSONE [Deltasone] 50 mg PO QDAY #5 tab 05/02/19 Unknown Rx Albuterol Sulfate [Proventil Hfa] 6.7 gm IH QID PRN #1 hfa.aer.ad 06/13/19 Unknown Rx Oseltamivir [Tamiflu] 75 mg PO BID 5 Days #10 cap 06/13/19 Unknown Rx predniSONE [Deltasone] 20 mg PO QDAY #5 tab 06/13/19 Unknown Rx Albuterol Mdi (or & Nicu Only) 2 puff IH QID PRN #8.5 gram 09/04/20 Unknown Rx [ProAir HFA Inhaler] Prednisone [predniSONE 10 mg 10 mg PO .TAPER #1 tab.ds.pk 09/04/20 Unknown Rx (6-Day Pack, 21 Tabs)] ED Physical Exam - General Limitations: No Limitations - Other Other exam information: GENERAL: The patient is well-developed well-nourished. HENT: Normocephalic. Atraumatic. Patient has moist mucous membranes. EYES: Extraocular motions are intact. NECK: Supple. Trachea is midline. CHEST/LUNGS: Moderate to severe wheezing throughout the chest. There is tachypnea and some conversational dyspnea. HEART/CARDIOVASCULAR: Regular. There is mild tachycardia. There is no murmur. ABDOMEN: Abdomen is soft, nontender. Patient has normal bowel sounds. There is no abdominal distention. SKIN: Skin is warm and dry. NEURO: The patient is awake, alert, and oriented. The patient is cooperative. The patient has no focal neurologic deficits. MUSCULOSKELETAL: There is no tenderness or deformity. There is no limitation range of motion. ED Course Vital Signs 10/25/20 10/25/20 10/26/20 21:47 22:30 00:17 Temperature 100.3 F H Pulse Rate 111 H 112 H Respiratory 18 17 16 Rate Blood Pressure 146/96 133/84 O2 Sat by Pulse 91 96 Oximetry AMI score - Ami Score Age > 65: (0) No Aspirin use within the Past 7 Days: (0) No 3 or more CAD Risk Factors: (0) No 2 or more Angina events in past 24 hrs: (1) Yes Known CAD with more than 50% Stenosis: (0) No Elevated Cardiac Markers: (0) No ST Deviation Greater than 0.5mm: (0) No AMI Score: 1 ED Medical Decision Making - Lab Data Result diagrams: 10/25/20 22:42 10/25/20 22:42 Lab Results 10/25/20 10/25/20 10/25/20 Range/Units 22:42 22:42 22:42 WBC 8.7 (4.5-11.0) K/mm3 RBC 5.31 H (3.65-5.03) M/mm3 Hgb 17.6 H (11.8-15.2) gm/dl Hct 51.4 H (35.5-45.6) % MCV 97 H (84-94) fl MCH 33 H (28-32) pg MCHC 34 (32-34) % RDW 12.8 L (13.2-15.2) % Plt Count 196 (140-440) K/mm3 Lymph % (Auto) 10.1 L (13.4-35.0) % [place] % (Auto) 14.3 H (0.0-7.3) % Eos % (Auto) 1.5 (0.0-4.3) % Baso % (Auto) 0.5 (0.0-1.8) % Lymph # (Auto) 0.9 L (1.2-5.4) K/mm3 [place] # (Auto) 1.2 H (0.0-0.8) K/mm3 Eos # (Auto) 0.1 (0.0-0.4) K/mm3 Baso # (Auto) 0.0 (0.0-0.1) K/mm3 Seg Neutrophils % 73.6 H (40.0-70.0) % Seg Neutrophils # 6.4 (1.8-7.7) K/mm3 D-Dimer < 135.00 (0-234) ng/mlDDU Sodium 140 (137-145) mmol/L Potassium 4.4 (3.6-5.0) mmol/L Chloride 99.6 (98-107) mmol/L Carbon Dioxide 28 (22-30) mmol/L Anion Gap 17 mmol/L BUN 9 (9-20) mg/dL Creatinine 0.8 (0.8-1.3) mg/dL Estimated GFR > 60 ml/min BUN/Creatinine Ratio 11 % Glucose 89 (75-100) mg/dL Calcium 9.4 (8.4-10.2) mg/dL Troponin T < 0.010 (0.00-0.029) ng/mL - EKG Data -: EKG Interpreted by Ms EKG shows normal: sinus rhythm, axis, intervals, QRS complexes (Incomplete right bundle branch block), ST-T waves Rate: tachycardia (101 bpm) - EKG Data When compared to previous EKG there are: no significant change Interpretation: unchanged when compared t (03/25/16) - Radiology Data Radiology results: image reviewed interpreted by me: Chest x-ray does not show any acute process. There are no pleural effusions, obvious pneumonia and there is no pneumothorax. No significant cardiomegaly. - Medical Decision Making This patient presents with a 3-day history of shortness of breath, wheezing, and some chest discomfort/tightness. The patient was brought back to room #2 where he was found to have a room air pulse ox of 88%. On examination he has moderate to severe wheezing/bronchospasm. There is some tachypnea and conversational dyspnea. An IV was placed and the patient was given IV fluid, Solu-Medrol, magnesium, and he was placed on a continuous breathing treatment with both albuterol and Atrovent. After completing the breathing treatment, the patient did not have much improvement of his wheezing/bronchospasm. Initially he was 100% oxygen saturation after removal of the breathing treatment. However he dropped down again and was placed on a nasal cannula. He is currently between 90 to 92% on 2 L nasal cannula. I will increase this to 3 or 4 L. For all these reasons the patient will be admitted to the hospital for further evaluation and treatment. EKG did not have any morphology consistent with ST elevation myocardial infarction. Chest x-ray does not show any pneumonia, pleural effusions, pneumothorax or any acute process. Labs have been unremarkable including CBC, metabolic panel, troponin and negative D-dimer. Patient was accepted for admission by the hospitalist, Dr. Wright. Critical Care Time: Yes Critical care time in (mins) excluding proc time.: 31 Critical care attestation.: If time is entered above; I have spent that time in minutes in the direct care of this critically ill patient, excluding procedure time. Critical care time was spent on this patient in doing his initial evaluation, multiple reevaluations, ordering and interpretation of labs and imaging, IV fluid, IV Solu-Medrol, IV magnesium, continuous breathing treatment, oxygen supplementation for his hypoxia, multiple discussions with the patient. Critical Care Time: 31 minutes ED Disposition Clinical Impression: Hypoxia, Bronchospasm, Chest tightness Asthma attack Qualifiers: Asthma severity: unspecified severity Asthma persistence: unspecified Qualified Code(s): J45.901 - Unspecified asthma with (acute) exacerbation Disposition: OP ADMIT IP TO THIS HOSP Is pt being admited?: Yes Condition: Serious Time of Disposition: 00:25
--- NOTE | 2020-10-25 22:58 | XRay Report ---
CHEST 1 VIEW 10/25/2020 9:40 PM INDICATION / CLINICAL INFORMATION: CP. COMPARISON: 05/02/2019. FINDINGS: SUPPORT DEVICES: None. HEART / MEDIASTINUM: No significant abnormality. LUNGS / PLEURA: No significant pulmonary or pleural abnormality. No pneumothorax. ADDITIONAL FINDINGS: No significant additional findings. IMPRESSION: No acute abnormality. Signer Name: Praful Joy MD Signed: 10/25/2020 10:53 PM Workstation Name: [id number]
[2020-10-25 23:07] LABS: Basophils % (Auto) 0.5 % (0.0-1.8); Eosinophils # (Auto) 0.1 K/mm3 (0.0-0.4); Eosinophils % (Auto) 1.5 % (0.0-4.3); Hematocrit 51.4 % (35.5-45.6); Hemoglobin 17.6 gm/dl (11.8-15.2); Lymphocytes # (Auto) 0.9 K/mm3 (1.2-5.4); Lymphocytes % (Auto) 10.1 % (13.4-35.0); Mean Corpuscular HGB Conc 34 % (32-34); Mean Corpuscular Volume 97 fl (84-94); Monocytes # (Auto) 1.2 K/mm3 (0.0-0.8); Monocytes % (Auto) 14.3 % (0.0-7.3); Platelet Count 196 K/mm3 (140-440); Red Blood Count 5.31 M/mm3 (3.65-5.03); Red Cell Distribution Width 12.8 % (13.2-15.2)
[2020-10-25 23:31] LABS: BUN/Creatinine Ratio 11; Blood Urea Nitrogen 9 mg/dL (9-20); Calcium 9.4 mg/dL (8.4-10.2); Hemolysis Index 3
[2020-10-25] MEDS ORDERED: ACETAMINOPHEN 325 MG TAB PO ONE (23:48)
[2020-10-26] MEDS ORDERED: ONDANSETRON 4 MG/2 ML INJ IV PRN (01:03)
[2020-10-26] MEDS ORDERED: MORPHINE 2 MG/1 ML INJ IV PRN (01:03)
[2020-10-26] MEDS ORDERED: ACETAMINOPHEN 325 MG TAB PO PRN (01:03)
[2020-10-26] MEDS ORDERED: MAGNESIUM HYDROXIDE (MOM) ORAL LIQD UDC PO PRN (01:03)
--- NOTE | 2020-10-26 01:20 | History and Physical Report ---
History of Present Illness Date of examination: 10/26/20 Date of admission: 10/26/20 00:25 Chief complaint: Shortness of Breath History of present illness: 30-year-old -[place]er male with known history of asthma presenting to the emergency room today complaining of shortness of breath, cough and chest discomfort which has been ongoing for the past 3 days. He started having some sinus congestion after starting a new job few days ago and later progressing to shortness of breath and cough. He has been using his nebulizer more often over the past 2 days without any significant relief. He was in [place] about 2 weeks ago and denies having any sick contacts or exposure to anybody with COVID-19. Patient denies any nausea vomiting, no diarrhea, no changes in taste or smell, no headache or dizziness, no diaphoresis, no hematuria or dysuria. Upon arrival in the emergency room today he was hypoxic with O2 saturation of 88% and also had a temperature of 100.3 F. Work-up in the emergency room today, chest x-ray was unremarkable. Labs were also unremarkable. Patient is being admitted with asthma exacerbation with possible underlying bronchitis. However, patient will be ruled out for COVID-19. Past History Past Medical History: other (Asthma) Past Surgical History: No surgical history Social history: no significant social history Family history: no significant family history Medications and Allergies Allergies Allergy/AdvReac Type Severity Reaction Status Date / Time amoxicillin AdvReac Swelling Verified 06/15/14 09:46 shellfish derived AdvReac Swelling Verified 06/15/14 09:46 Home Medications Medication Instructions Recorded Confirmed Last Taken Type Butalb/Acetamin/Caff 50-325-40 1 tab PO Q8HR PRN #12 tablet 03/25/16 Unknown Rx [Fioricet] Fluticasone (Nf) [Flovent Hfa(Nf)] 2 puff IH BID #1 inh 03/25/16 Unknown Rx Prednisone [predniSONE 5 mg (6-Day 5 mg PO .TAPER #1 tab.ds.pk 03/25/16 Unknown Rx Pack, 21 Tabs)] Nystatin/Triamcin 1 applic TP BID 1 Days #1 tube 10/25/17 Unknown Rx [Nystatin-Triamcinolone Ointm] hydrOXYzine HCL [Hydroxyzine HCl] 10 mg PO QHS #20 tablet 05/12/18 Unknown Rx predniSONE 10 mg PO QDAY #4 tab 10/25/17 Unknown Rx ALBUTEROL Inhaler(NF) [VENTOLIN 2 puff IH Q4-6H PRN #1 inha 05/01/18 Unknown Rx Inhaler(NF)] ALBUTEROL NEB's [Proventil 0.083% 2.5 mg IH Q4H PRN #75 neb 01/15/19 Unknown Rx NEBS] Albuterol Mdi (or & Nicu Only) 1 - 2 puff IH Q6H PRN #1 inhalation 01/15/19 Unknown Rx [ProAir HFA Inhaler] Prednisone [predniSONE 10 mg 10 mg PO .TAPER #21 tab.ds.pk 01/15/19 Unknown Rx (6-Day Pack, 21 Tabs)] Albuterol Mdi (or & Nicu Only) 2 puff IH QID PRN #1 inhalation 05/02/19 Unknown Rx [ProAir HFA Inhaler] Montelukast [Singulair] 10 mg PO QPM #14 tablet 05/02/19 Unknown Rx predniSONE [Deltasone] 50 mg PO QDAY #5 tab 05/02/19 Unknown Rx Albuterol Sulfate [Proventil Hfa] 6.7 gm IH QID PRN #1 hfa.aer.ad 06/13/19 Unknown Rx Oseltamivir [Tamiflu] 75 mg PO BID 5 Days #10 cap 06/13/19 Unknown Rx predniSONE [Deltasone] 20 mg PO QDAY #5 tab 06/13/19 Unknown Rx Albuterol Mdi (or & Nicu Only) 2 puff IH QID PRN #8.5 gram 09/04/20 Unknown Rx [ProAir HFA Inhaler] Prednisone [predniSONE 10 mg 10 mg PO .TAPER #1 tab.ds.pk 09/04/20 Unknown Rx (6-Day Pack, 21 Tabs)] Active Meds: Active Medications Acetaminophen (Acetaminophen 325 Mg Tab) 650 mg PO Q4H PRN PRN Reason: Pain MILD(1-3)/Fever >100.5/LEO Albuterol/Ipratropium (Ipratropium/Albuterol Sulfate 3 Ml Ampul.Neb) 1 ampul IH Q6HRT CATHLEEN Enoxaparin Sodium (Enoxaparin 40 Mg/0.4 Ml Inj) 40 mg SUB-Q QDAY@2200 CATHLEEN; Protocol Sodium Chloride (Nacl 0.9% 1000 Ml) 1,000 mls @ 250 mls/hr IV ONCE ONE Stop: 10/26/20 02:19 Last Admin: 10/25/20 22:36 Dose: 250 mls/hr Documented by: Magnesium Hydroxide (Magnesium Hydroxide (Mom) Oral Liqd Udc) 30 ml PO Q4H PRN PRN Reason: Constipation Methylprednisolone Sodium Succinate (Methylprednisolone Sod Succinate 40 Mg/1 Ml Inj) 40 mg IV Q8HR CATHLEEN Morphine Sulfate (Morphine 2 Mg/1 Ml Inj) 2 mg IV Q4H PRN PRN Reason: Pain, Moderate (4-6) Ondansetron HCl (Ondansetron 4 Mg/2 Ml Inj) 4 mg IV Q8H PRN PRN Reason: Nausea And Vomiting Sodium Chloride (Sodium Chloride 0.9% 10 Ml Flush Syringe) 10 ml IV BID CATHLEEN Sodium Chloride (Sodium Chloride 0.9% 10 Ml Flush Syringe) 10 ml IV PRN PRN PRN Reason: LINE FLUSH Review of Systems Constitutional: fever, chills Ears, nose, mouth and throat: nasal congestion, no sore throat Cardiovascular: no chest pain, no palpitations Respiratory: cough, shortness of breath Gastrointestinal: no abdominal pain, no nausea, no vomiting, no diarrhea Genitourinary Male: no dysuria, no hematuria Musculoskeletal: no neck pain, no low back pain Integumentary: no rash, no pruritis Neurological: no headaches, no confusion Psychiatric: no anxiety, no depression Endocrine: no polyphagia, no polydipsia, no polyuria, no nocturia Exam - Constitutional Vitals: Temp Pulse Resp BP Pulse Ox 100.3 F H 113 H 16 111/72 91 10/25/20 21:47 10/26/20 00:41 10/26/20 00:58 10/26/20 00:30 10/26/20 00:30 General appearance: Present: no acute distress, well-nourished - EENT Eyes: Present: PERRL, EOM intact. Absent: scleral icterus ENT: hearing intact, clear oral mucosa, dentition normal - Neck Neck: Present: supple, normal ROM - Respiratory Respiratory effort: normal Respiratory: bilateral: wheezing - Cardiovascular Rhythm: regular Heart Sounds: Present: S1 & S2. Absent: systolic murmur, diastolic murmur, rub, click - Extremities Extremities: no ischemia, pulses intact, pulses symmetrical, No edema, normal temperature, normal color, Full ROM Peripheral Pulses: within normal limits - Abdominal General gastrointestinal: Present: soft, non-tender, non-distended, normal bowel sounds. Absent: mass - Integumentary Integumentary: Present: clear, warm, dry, normal turgor. Absent: rash - Musculoskeletal Musculoskeletal: strength equal bilaterally - Psychiatric Psychiatric: appropriate mood/affect, intact judgment & insight, memory intact, cooperative - Neurologic Neurologic: CNII-XII intact, no focal deficits, moves all extremities HEART Score - HEART Score EKG: Non-specific Age: < 45 Risk factors: No known risk factors Troponin: Troponin T < 0.010 ng/mL (0.00-0.029) 10/25/20 22:42 Troponin: < normal limit Results - Labs CBC & Chem 7: 10/25/20 22:42 10/25/20 22:42 Labs: Abnormal lab results 10/25/20 Range/Units 22:42 RBC 5.31 H (3.65-5.03) M/mm3 Hgb 17.6 H (11.8-15.2) gm/dl Hct 51.4 H (35.5-45.6) % MCV 97 H (84-94) fl MCH 33 H (28-32) pg RDW 12.8 L (13.2-15.2) % Lymph % (Auto) 10.1 L (13.4-35.0) % [place] % (Auto) 14.3 H (0.0-7.3) % Lymph # (Auto) 0.9 L (1.2-5.4) K/mm3 [place] # (Auto) 1.2 H (0.0-0.8) K/mm3 Seg Neutrophils % 73.6 H (40.0-70.0) % Assessment and Plan - Patient Problems (1) Asthma attack Current Visit: Yes Status: Acute Qualifiers: Asthma severity: unspecified severity Asthma persistence: unspecified Qualified Code(s): J45.901 - Unspecified asthma with (acute) exacerbation Plan to address problem: Patient placed on nebulizing treatments. We will also placed on IV steroid. (2) Hypoxia Current Visit: Yes Status: Acute Plan to address problem: Possibly secondary to the underlying asthma exacerbation with bronchitis. Placed on oxygen by nasal cannula. We will keep O2 saturation greater or equal to 94%. (3) Acute bronchitis Current Visit: No Status: Acute Qualifiers: Bronchitis organism: unspecified organism Qualified Code(s): J20.9 - Acute bronchitis, unspecified Plan to address problem: Patient will be started on empiric IV antibiotics. (4) DVT prophylaxis Current Visit: No Status: Acute Plan to address problem: Patient placed on subcutaneous Lovenox. (5) Full code status Current Visit: Yes Status: Acute Plan to address problem: Patient is a full code.
[2020-10-26 02:26] LABS: C-Reactive Protein 1.7 mg/dL (0.00-1.30)
[2020-10-26] MEDS: IPRATROPIUM/ALBUTEROL SULFATE 3 ML AMPUL.NEB IH SCH ×4 (03:24→20:49)
[2020-10-26] MEDS: methylPREDNISolone Sod Succinate 40 MG/1 ML INJ IV SCH ×3 (05:32→21:54)
[2020-10-26] MEDS ORDERED: BUTALB/ACETAMINOPHEN/CAFFEINE TAB PO PRN (08:00)
--- NOTE | 2020-10-26 09:18 | Event Note ---
Date: 10/26/20 30-year-old -[place]el[place] male with known history of asthma presenting to the emergency room today complaining of shortness of breath, cough and chest discomfort which has been ongoing for the past 3 days. He started having some sinus congestion after starting a new job few days ago and later progressing to shortness of breath and cough. He has been using his nebulizer more often over the past 2 days without any significant relief. He was in [place] about 2 weeks ago and denies having any sick contacts or exposure to anybody with COVID-19. Patient denies any nausea vomiting, no diarrhea, no changes in taste or smell, no headache or dizziness, no diaphoresis, no hematuria or dysuria. Upon arrival in the emergency room today he was hypoxic with O2 saturation of 88% and also had a temperature of 100.3 F. Work-up in the emergency room today, chest x-ray was unremarkable. Labs were also unremarkable. Patient is being admitted with asthma exacerbation with possible underlying bronchitis. However, patient will be ruled out for COVID-19. 10/26: Patient showing some clinical improvement. Reviewed medications restarted steroid inhalers. The patient ran out of his inhalers about a week ago. He continues to use THC but denies use of cigarettes. He does admit to alcohol use but states very infrequently and has never had any withdrawal symptoms. None noted at this time. We will continue current management we will obtain pulmonary evaluation while awaiting Covid testing due to noted hypoxia. We will also obtain a home oxygen evaluation to see how he is doing. He still has bilateral wheeze and mild crepitation at the bases. Otherwise continue current treatment additional time spent 22 minutes
[2020-10-26] MEDS ORDERED: FLUTICASONE IH SCH (10:00)
--- NOTE | 2020-10-26 12:08 | Electrocardiograph Report ---
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
--- NOTE | 2020-10-26 15:15 | Consultation ---
History of Present Illness - Reason for Consult Consult date: 10/26/20 Asthma Rule out COVID-19 Requesting physician: JAJA ELENA - History of Present Illness 30-year-old male with history of asthma, admitted on 10/25/2020 secondary to 3- day history of cough, chest discomfort, worsening shortness of breath. Patient just started a new job few days ago. He noticed some sinus congestion at the new place. He has been using his nebulizer several times without relief. He denies any nausea, vomiting, diarrhea. Upon arrival, temperature 100.3, HR 111, RR 18, O2 sat 91% dropped to 89%, BP 146/96. Review of Systems: positive in bold print General: fever, chills, malaise Cutaneous: rash, pruritus Head: headaches or injury Eyes: changes in vision, eye pain, double vision Ears: ear pain, ear discharge, ringing or hearing loss Nose: nose bleeding, stuffiness Mouth & throat: bleeding gums, horseness, no dental problems, or swollen glands Neck: no pain, node enlargement/lumps, tyroid enlargement or tenderness Respiratory: SOB, cough, PEREZ, wheezing, sputum, hemoptysis, pleuritic chest pain Cardiovascular: chest pain, leg edema, cyanosis, PEREZ, orthopnea Musculoskeletal: edema, deformities, pain Gastrointestinal: nausea, vomiting, hematemesis, diarrhea, constipation, melena, bright red blood in stools, fecal incontinence, jaundice Genitourinary/Reproductive: frequent urination, dysuria, hematuria, incontinence Neurogical: seizures, headaches, weakness, paresthesias, loss of speech or vision; memory loss, vertigo, tremors, numbness Psychiatric: stable mood; excessive anxiety, sadness or moodiness Past History Past Medical History: other (Asthma) Past Surgical History: No surgical history Social history: no significant social history Family history: no significant family history Medications and Allergies Allergies Allergy/AdvReac Type Severity Reaction Status Date / Time amoxicillin AdvReac Swelling Verified 06/15/14 09:46 shellfish derived AdvReac Swelling Verified 06/15/14 09:46 Home Medications Medication Instructions Recorded Confirmed Last Taken Type Butalb/Acetamin/Caff 50-325-40 1 tab PO Q8HR PRN #12 tablet 03/25/16 10/26/20 Unknown Rx [Fioricet] Fluticasone (Nf) [Flovent Hfa(Nf)] 2 puff IH BID #1 inh 03/25/16 10/26/20 Unknown Rx Prednisone [predniSONE 5 mg (6-Day 5 mg PO .TAPER #1 tab.ds.pk 03/25/16 10/26/20 Unknown Rx Pack, 21 Tabs)] Nystatin/Triamcin 1 applic TP BID 1 Days #1 tube 10/25/17 10/26/20 Unknown Rx [Nystatin-Triamcinolone Ointm] hydrOXYzine HCL [Hydroxyzine HCl] 10 mg PO QHS #20 tablet 10/25/17 10/26/20 Unknown Rx predniSONE 10 mg PO QDAY #4 tab 10/25/17 10/26/20 Unknown Rx ALBUTEROL Inhaler(NF) [VENTOLIN 2 puff IH Q4-6H PRN #1 inha 05/01/18 10/26/20 Unknown Rx Inhaler(NF)] ALBUTEROL NEB's [Proventil 0.083% 2.5 mg IH Q4H PRN #75 neb 01/15/19 10/26/20 Unknown Rx NEBS] Albuterol Mdi (or & Nicu Only) 1 - 2 puff IH Q6H PRN #1 inhalation 01/15/19 10/26/20 Unknown Rx [ProAir HFA Inhaler] Prednisone [predniSONE 10 mg 10 mg PO .TAPER #21 tab.ds.pk 01/15/19 10/26/20 Unknown Rx (6-Day Pack, 21 Tabs)] Albuterol Mdi (or & Nicu Only) 2 puff IH QID PRN #1 inhalation 05/02/19 10/26/20 Unknown Rx [ProAir HFA Inhaler] Montelukast [Singulair] 10 mg PO QPM #14 tablet 05/02/19 10/26/20 Unknown Rx predniSONE [Deltasone] 50 mg PO QDAY #5 tab 05/02/19 10/26/20 Unknown Rx Albuterol Sulfate [Proventil Hfa] 6.7 gm IH QID PRN #1 hfa.aer.ad 06/13/19 10/26/20 Unknown Rx Oseltamivir [Tamiflu] 75 mg PO BID 5 Days #10 cap 06/13/19 10/26/20 Unknown Rx predniSONE [Deltasone] 20 mg PO QDAY #5 tab 06/13/19 10/26/20 Unknown Rx Albuterol Mdi (or & Nicu Only) 2 puff IH QID PRN #8.5 gram 09/04/20 10/26/20 Unknown Rx [ProAir HFA Inhaler] Prednisone [predniSONE 10 mg 10 mg PO .TAPER #1 tab.ds.pk 09/04/20 10/26/20 Unknown Rx (6-Day Pack, 21 Tabs)] Active Meds: Active Medications Acetaminophen (Acetaminophen 325 Mg Tab) 650 mg PO Q4H PRN PRN Reason: Pain MILD(1-3)/Fever >100.5/LEO Acetaminophen/Butalbital/Caffeine (Butalb/Acetaminophen/Caffeine Tab) 1 tab PO Q8HR PRN PRN Reason: Headache Albuterol/Ipratropium (Ipratropium/Albuterol Sulfate 3 Ml Ampul.Neb) 1 ampul IH Q6HRT [facility] Last Admin: 10/26/20 14:25 Dose: 1 ampul Documented by: Budesonide (Budesonide 0.5 Mg/2 Ml Nebu) 0.5 mg IH Q12HRT CATHLEEN Enoxaparin Sodium (Enoxaparin 40 Mg/0.4 Ml Inj) 40 mg SUB-Q QDAY@2200 CATHLEEN; Protocol Hydroxyzine HCl (Hydroxyzine Hcl 10 Mg Tab) 10 mg PO QHS CATHLEEN Levofloxacin/Dextrose (Levaquin 750mg/150ml) 750 mg in 150 mls @ 100 mls/hr IV Q24H CATHLEEN; Protocol Last Admin: 10/26/20 02:20 Dose: 100 mls/hr Documented by: Magnesium Hydroxide (Magnesium Hydroxide (Mom) Oral Liqd Udc) 30 ml PO Q4H PRN PRN Reason: Constipation Methylprednisolone Sodium Succinate (Methylprednisolone Sod Succinate 40 Mg/1 Ml Inj) 40 mg IV Q8HR CATHLEEN Last Admin: 10/26/20 05:32 Dose: 40 mg Documented by: Montelukast Sodium (Montelukast 10 Mg Tab) 10 mg PO QPM CATHLEEN Morphine Sulfate (Morphine 2 Mg/1 Ml Inj) 2 mg IV Q4H PRN PRN Reason: Pain, Moderate (4-6) Ondansetron HCl (Ondansetron 4 Mg/2 Ml Inj) 4 mg IV Q8H PRN PRN Reason: Nausea And Vomiting Sodium Chloride (Sodium Chloride 0.9% 10 Ml Flush Syringe) 10 ml IV BID CATHLEEN Last Admin: 10/26/20 09:52 Dose: 10 ml Documented by: Sodium Chloride (Sodium Chloride 0.9% 10 Ml Flush Syringe) 10 ml IV PRN PRN PRN Reason: LINE FLUSH Physical Examination - Physical Exam Narrative exam: General appearance: Alert in NAD pleasant Eyes: anicteric sclerae, moist conjunctivae; no lid-lag; PERRLA HENT: Normocephalic, Atraumatic; normal external ears, nares open, oropharynx clear Neck: supple, tracheal midline, no JVD Lungs: Bilateral wheezing CV: RRR Abdomen: Soft, non-tender Extremities: no edema, no cyanosis Skin: No rash. Psych: no agitated Neuro: alert and oriented x 3. Moving all extermities - Constitutional Vitals: Vital Signs Temp Pulse Resp BP Pulse Ox 97.9 F 76 18 99/57 97 10/26/20 04:38 10/26/20 14:25 10/26/20 14:25 10/26/20 04:38 10/26/20 07:32 Temperature -Last 24 Hours Temperature 97.9 F Temperature 100.3 F Results - Labs CBC & Chem 7: 10/25/20 22:42 10/26/20 01:51 Labs: Abnormal lab results 10/25/20 10/26/20 Range/Units 22:42 01:51 RBC 5.31 H (3.65-5.03) M/mm3 Hgb 17.6 H (11.8-15.2) gm/dl Hct 51.4 H (35.5-45.6) % MCV 97 H (84-94) fl MCH 33 H (28-32) pg RDW 12.8 L (13.2-15.2) % Lymph % (Auto) 10.1 L (13.4-35.0) % [place] % (Auto) 14.3 H (0.0-7.3) % Lymph # (Auto) 0.9 L (1.2-5.4) K/mm3 [place] # (Auto) 1.2 H (0.0-0.8) K/mm3 Seg Neutrophils % 73.6 H (40.0-70.0) % Glucose 208 H (75-100) mg/dL C-Reactive Protein 1.70 H (0.00-1.30) mg/dL Assessment and Plan Cultures: SARS-CoV-2 PCR negative Assessment: 30-year-old male with history of asthma, admitted on 10/25/2020 secondary to 3-day history of cough, chest discomfort, worsening shortness of breath: #SIRS: With low-grade fever, however low procalcitonin; ? Viral respiratory infection. SARS-CoV-2 PCR negative. #Asthma exacerbation: Chest x-ray with no evidence of pneumonia. #Acute hypoxia: Currently on 2 L nasal cannula, likely secondary to asthma exacerbation. Recommendations: Stop Levaquin Treat asthma exacerbation Monitor fever Will follow. Saray Mendiola MD Infectious Diseases Petrologist [facility] M [phone] O [phone]
[2020-10-26] MEDS ORDERED: MONTELUKAST 10 MG TAB PO SCH (18:00)
--- NOTE | 2020-10-26 18:11 | Consultation ---
History of Present Illness Consult date: 10/26/20 Requesting physician: SHREE TAYLOR Reason for consult: dyspnea History of present illness: 30 yo admitted with increased SOB, wheezing, cough, white sputum, and low-grade fever. No chest pain, hemoptysis. Active Medications Acetaminophen (Acetaminophen 325 Mg Tab) 650 mg PO Q4H PRN PRN Reason: Pain MILD(1-3)/Fever >100.5/LEO Acetaminophen/Butalbital/Caffeine (Butalb/Acetaminophen/Caffeine Tab) 1 tab PO Q8HR PRN PRN Reason: Headache Albuterol/Ipratropium (Ipratropium/Albuterol Sulfate 3 Ml Ampul.Neb) 1 ampul IH Q6HRT [facility] Last Admin: 10/26/20 20:49 Dose: 1 ampul Documented by: Budesonide (Budesonide 0.5 Mg/2 Ml Nebu) 0.5 mg IH Q12HRT [facility] Last Admin: 10/26/20 20:49 Dose: 0.5 mg Documented by: Enoxaparin Sodium (Enoxaparin 40 Mg/0.4 Ml Inj) 40 mg SUB-Q QDAY@2200 [facility]; Prot ocol Last Admin: 10/26/20 21:54 Dose: 40 mg Documented by: Hydroxyzine HCl (Hydroxyzine Hcl 10 Mg Tab) 10 mg PO QHS [facility] Last Admin: 10/26/20 21:54 Dose: 10 mg Documented by: Levofloxacin/Dextrose (Levaquin 750mg/150ml) 750 mg in 150 mls @ 100 mls/hr IV Q24H [facility]; Protocol Last Admin: 10/26/20 02:20 Dose: 100 mls/hr Documented by: Magnesium Hydroxide (Magnesium Hydroxide (Mom) Oral Liqd Udc) 30 ml PO Q4H PRN PRN Reason: Constipation Methylprednisolone Sodium Succinate (Methylprednisolone Sod Succinate 40 Mg/1 Ml Inj) 40 mg IV Q8HR [facility] Last Admin: 10/26/20 21:54 Dose: 40 mg Documented by: Montelukast Sodium (Montelukast 10 Mg Tab) 10 mg PO QPM [facility] Last Admin: 10/26/20 17:01 Dose: 10 mg Documented by: Morphine Sulfate (Morphine 2 Mg/1 Ml Inj) 2 mg IV Q4H PRN PRN Reason: Pain, Moderate (4-6) Ondansetron HCl (Ondansetron 4 Mg/2 Ml Inj) 4 mg IV Q8H PRN PRN Reason: Nausea And Vomiting Sodium Chloride (Sodium Chloride 0.9% 10 Ml Flush Syringe) 10 ml IV BID [facility] Last Admin: 10/26/20 21:54 Dose: 10 ml Documented by: Sodium Chloride (Sodium Chloride 0.9% 10 Ml Flush Syringe) 10 ml IV PRN PRN PRN Reason: LINE FLUSH Past History Past Medical History: other (Asthma) Past Surgical History: No surgical history Social history: smoking, full code, other (THC). denies: alcohol abuse, prescription drug abuse, IV drug use Family history: no significant family history (no pulm issues reported) Medications and Allergies Allergies Allergy/AdvReac Type Severity Reaction Status Date / Time amoxicillin AdvReac Swelling Verified 06/15/14 09:46 shellfish derived AdvReac Swelling Verified 06/15/14 09:46 Home Medications Medication Instructions Recorded Confirmed Last Taken Type Butalb/Acetamin/Caff 50-325-40 1 tab PO Q8HR PRN #12 tablet 03/25/16 10/26/20 Un known Rx [Fioricet] Fluticasone (Nf) [Flovent Hfa(Nf)] 2 puff IH BID #1 inh 03/25/16 10/26/20 Unknown Rx Prednisone [predniSONE 5 mg (6-Day 5 mg PO .TAPER #1 tab.ds.pk 03/25/16 10/26/20 Unknown Rx Pack, 21 Tabs)] Nystatin/Triamcin 1 applic TP BID 1 Days #1 tube 10/25/17 10/26/20 Unknown Rx [Nystatin-Triamcinolone Ointm] hydrOXYzine HCL [Hydroxyzine HCl] 10 mg PO QHS #20 tablet 10/25/17 10/26/20 Unknown Rx predniSONE 10 mg PO QDAY #4 tab 10/25/17 10/26/20 Unknown Rx ALBUTEROL Inhaler(NF) [VENTOLIN 2 puff IH Q4-6H PRN #1 inha 05/01/18 10/26/20 Unknown Rx Inhaler(NF)] ALBUTEROL NEB's [Proventil 0.083% 2.5 mg IH Q4H PRN #75 neb 01/15/19 10/26/20 Unknown Rx NEBS] Albuterol Mdi (or & Nicu Only) 1 - 2 puff IH Q6H PRN #1 inhalation 01/15/19 10/26/20 Unknown Rx [ProAir HFA Inhaler] Prednisone [predniSONE 10 mg 10 mg PO .TAPER #21 tab.ds.pk 01/15/19 10/26/20 Unknown Rx (6-Day Pack, 21 Tabs)] Albuterol Mdi (or & Nicu Only) 2 puff IH QID PRN #1 inhalation 05/02/19 10/26/20 Unknown Rx [ProAir HFA Inhaler] Montelukast [Singulair] 10 mg PO QPM #14 tablet 05/02/19 10/26/20 Unknown Rx predniSONE [Deltasone] 50 mg PO QDAY #5 tab 05/02/19 10/26/20 Unknown Rx Albuterol Sulfate [Proventil Hfa] 6.7 gm IH QID PRN #1 hfa.aer.ad 06/13/19 10/26/20 Unknown Rx Oseltamivir [Tamiflu] 75 mg PO BID 5 Days #10 cap 06/13/19 10/26/20 Unknown Rx predniSONE [Deltasone] 20 mg PO QDAY #5 tab 06/13/19 10/26/20 Unknown Rx Albuterol Mdi (or & Nicu Only) 2 puff IH QID PRN #8.5 gram 09/04/20 10/26/20 Unknown Rx [ProAir HFA Inhaler] Prednisone [predniSONE 10 mg 10 mg PO .TAPER #1 tab.ds.pk 09/04/20 10/26/20 Unknown Rx (6-Day Pack, 21 Tabs)] Active Meds: Active Medications Acetaminophen (Acetaminophen 325 Mg Tab) 650 mg PO Q4H PRN PRN Reason: Pain MILD(1-3)/Fever >100.5/LEO Acetaminophen/Butalbital/Caffeine (Butalb/Acetaminophen/Caffeine Tab) 1 tab PO Q8HR PRN PRN Reason: Headache Albuterol/Ipratropium (Ipratropium/Albuterol Sulfate 3 Ml Ampul.Neb) 1 ampul IH Q6HRT [facility] Last Admin: 10/26/20 14:25 Dose: 1 ampul Documented by: Budesonide (Budesonide 0.5 Mg/2 Ml Nebu) 0.5 mg IH Q12HRT [facility] Enoxaparin Sodium (Enoxaparin 40 Mg/0.4 Ml Inj) 40 mg SUB-Q QDAY@2200 [facility]; Protocol Hydroxyzine HCl (Hydroxyzine Hcl 10 Mg Tab) 10 mg PO QHS [facility] Levofloxacin/Dextrose (Levaquin 750mg/150ml) 750 mg in 150 mls @ 100 mls/hr IV Q24H [facility]; Protocol Last Admin: 10/26/20 02:20 Dose: 100 mls/hr Documented by: Magnesium Hydroxide (Magnesium Hydroxide (Mom) Oral Liqd Udc) 30 ml PO Q4H PRN PRN Reason: Constipation Methylprednisolone Sodium Succinate (Methylprednisolone Sod Succinate 40 Mg/1 Ml Inj) 40 mg IV Q8HR [facility] Last Admin: 10/26/20 14:00 Dose: 40 mg Documented by: Montelukast Sodium (Montelukast 10 Mg Tab) 10 mg PO QPM [facility] Last Admin: 10/26/20 17:01 Dose: 10 mg Documented by: Morphine Sulfate (Morphine 2 Mg/1 Ml Inj) 2 mg IV Q4H PRN PRN Reason: Pain, Moderate (4-6) Ondansetron HCl (Ondansetron 4 Mg/2 Ml Inj) 4 mg IV Q8H PRN PRN Reason: Nausea And Vomiting Sodium Chloride (Sodium Chloride 0.9% 10 Ml Flush Syringe) 10 ml IV BID [facility] Last Admin: 10/26/20 09:52 Dose: 10 ml Documented by: Sodium Chloride (Sodium Chloride 0.9% 10 Ml Flush Syringe) 10 ml IV PRN PRN PRN Reason: LINE FLUSH Review of Systems All systems: negative Physical Examination Vital signs: Vital Signs Temp Pulse Resp BP Pulse Ox 100.3 F H 111 H 18 146/96 91 10/25/20 21:47 10/25/20 21:47 10/25/20 21:47 10/25/20 21:47 10/25/20 21:47 General appearance: no acute distress, alert Eyes: non-icteric Neck: supple Effort: normal Ascultation: Bilateral: wheezes Cardiovascular: regular rate and rhythm Gastrointestinal: normoactive bowel sounds, soft, non-tender, non-distended Integumentary: normal Extremities: no cyanosis, no edema, pink and warm Musculoskeletal: no deformities normal mental status, non-focal exam, pupils equal and round, CN II-XII normal mood appropriate, affect normal Results - Laboratory Findings CBC and BMP: 10/25/20 22:42 10/26/20 01:51 PT/INR, D-dimer D-Dimer < 135.00 ng/mlDDU (0-234) 10/26/20 01:51 Abnormal lab findings: Abnormal Labs 10/25/20 10/26/20 22:42 01:51 RBC 5.31 H Hgb 17.6 H Hct 51.4 H MCV 97 H MCH 33 H RDW 12.8 L Lymph % (Auto) 10.1 L [place] % (Auto) 14.3 H Lymph # (Auto) 0.9 L [place] # (Auto) 1.2 H Seg Neutrophils % 73.6 H Glucose 208 H C-Reactive Protein 1.70 H - Diagnostic Findings Chest x-ray: report reviewed, image reviewed (clear lungs; hyperinflated) Assessment and Plan Imp: 1. Asthma exac. 2. Acute respiratory failure, hypoxia 3. THC smoker 4. Obesity Rec: 1. Cont. Bronchodilators, steroids; complete a few days of Levaquin 2. Stop smoking THC 3. Needs controller therapy -> would give him Rx for generic Airduo 113/14 1 puff BID and he should use [facility] to defray the cost 4. Outpatient PFTs/follow-up Plan of care reviewed w/ patient, he understands/agrees Thanks for the consult.
[2020-10-26] MEDS: BUDESONIDE 0.5 MG/2 ML NEBU IH SCH (20:49)
[2020-10-26] MEDS ORDERED: hydrOXYzine HCL 10 MG TAB PO SCH (22:00)
[2020-10-26] MEDS ORDERED: ENOXAPARIN 40 MG/0.4 ML INJ SUB-Q SCH (22:00)
[2020-10-27] MEDS: IPRATROPIUM/ALBUTEROL SULFATE 3 ML AMPUL.NEB IH SCH ×2 (03:13→07:40)
[2020-10-27] MEDS: methylPREDNISolone Sod Succinate 40 MG/1 ML INJ IV SCH (05:08)
[2020-10-27 05:12] VITALS: BP 131/73
[2020-10-27] MEDS: BUDESONIDE 0.5 MG/2 ML NEBU IH SCH (07:40)
[2020-10-27 07:54] LABS: Hematocrit 45.6 % (35.5-45.6); Hemoglobin 15.6 gm/dl (11.8-15.2); Mean Corpuscular HGB Conc 34 % (32-34); Mean Corpuscular Volume 97 fl (84-94); Platelet Count 204 K/mm3 (140-440); Red Blood Count 4.69 M/mm3 (3.65-5.03); Red Cell Distribution Width 12.8 % (13.2-15.2)
[2020-10-27 08:03] LABS: INR 1.1 (0.87-1.13)
[2020-10-27 08:09] LABS: BUN/Creatinine Ratio 18; Blood Urea Nitrogen 14 mg/dL (9-20); Calcium 8.9 mg/dL (8.4-10.2); Hemolysis Index 2
[2020-10-27 08:38] LABS: Total Cells Counted 100
[2020-10-27 08:39] LABS: Platelet Estimate Consistent w Auto; RBC Morphology Normal
--- NOTE | 2020-10-27 10:31 | Discharge Summary ---
Providers - Providers Date of Admission: 10/26/20 00:25 Attending physician: SHREE TAYLOR MD 10/26/20 01:38 Consult to Physician [CONS] Routine Comment: Consulting Provider: DONALD AQUINO Physician Instructions: Reason For Exam: Asthma exac, hypoxia, Fever. R/O covid -19 10/26/20 09:11 Consult to Physician [CONS] Routine Comment: Consulting Provider: YAYA SHIN Physician Instructions: Reason For Exam: asthma exacerbation Primary care physician: DITCH REPAIRER Hospitalization Reason for admission: Shortness of breath Condition: Stable Hospital course: 30-year-old -Congolese male with known history of asthma presenting to the emergency room today complaining of shortness of breath, cough and chest discom fort which has been ongoing for the past 3 days. He started having some sinus congestion after starting a new job few days ago and later progressing to shortness of breath and cough. He has been using his nebulizer more often over the past 2 days without any significant relief. He was in [place] about 2 weeks ago and denies having any sick contacts or exposure to anybody with COVID-19. Patient denies any nausea vomiting, no diarrhea, no changes in taste or smell, no headache or dizziness, no diaphoresis, no hematuria or dysuria. Upon arrival in the emergency room today he was hypoxic with O2 saturation of 88% and also had a temperature of 100.3 F. Work-up in the emergency room today, chest x-ray was unremarkable. Labs were also unremarkable. Patient is being admitted with asthma exacerbation with possible underlying bronchitis. However, patient will be ruled out for COVID-19. This was subsequently ruled out. Patient was treated for asthma exacerbation and acute respiratory failure with hypoxia. Antibiotics was initially started but then discontinued following infectious disease evaluation. He is clinically improved this morning and will be discharged extensive counseling given on tobacco use 15 minutes he verbalized understanding. Also discussed the need for outpatient PFTs 1. Asthma exac. 2. Acute respiratory failure, hypoxia 3. THC smoker 4. Obesity 5. SIRS without organ dysfunction Disposition: DC TO HOME OR SELFCARE Final Discharge Diagnosis (Prints w/discharge instructions): Acute hypoxic respiratory failure with asthma exacerbation Time spent for discharge: 35 mins Core Measure Documentation - Palliative Care Palliative Care/ Comfort Measures: Not Applicable - Core Measures Any of the following diagnoses?: none Exam - Physical Exam Narrative exam: VITAL SIGNS: Reviewed. GENERAL: The patient appears normally developed, Vital signs as documented. HEAD: No signs of head trauma. EYES: Pupils are equal. Extraocular motions intact. EARS: Hearing grossly intact. MOUTH: Oropharynx is normal. NECK: No adenopathy, no JVD. CHEST: Chest with diminished breath sounds bilaterally. No wheezes, rales, or rhonchi. CARDIAC: Regular rate and rhythm. S1 and S2, without murmurs, gallops, or rubs. VASCULAR: No Edema. Peripheral pulses normal and equal in all extremities. ABDOMEN: Soft, non tender and non distended. No rebound or guarding, and no masses palpated. Bowel Sounds normal. MUSCULOSKELETAL: Good range of motion of all major joints. Extremities without clubbing, cyanosis or edema. NEUROLOGIC EXAM: Alert and oriented x 3 No focal sensory or strength deficits. Speech normal. Follows commands. PSYCHIATRIC: Mood normal. SKIN: detail exam as documented in skin assessment - Constitutional Vitals: Temp Pulse Resp BP Pulse Ox 97.8 F 66 18 131/73 93 10/27/20 03:53 10/27/20 07:40 10/27/20 07:40 10/27/20 03:53 10/27/20 07:40 Plan Activity: advance as tolerated, fall precautions Diet: low fat Special Instructions: smoking cessation Follow up with: PRIMARY CARE, [Primary Care Provider] - 3-5 Days ORIANA WALKER MD [Staff Physician] - 7 Days Prescriptions: Fluticasone Propion/Salmeterol [Airduo Digihaler 113-14 Mcg] 1 each IH BID #1 aer.pw.bas Prednisone [predniSONE 10 mg (6-Day Pack, 21 Tabs)] 10 mg PO .TAPER #21 tab.ds.pk Albuterol Mdi (or & Nicu Only) [ProAir HFA Inhaler] 1 - 2 puff IH Q6H PRN #1 inhalation PRN Reason: Shortness Of Breath Montelukast [Singulair] 10 mg PO QPM #14 tablet
== END 2020-10-27 13:52 | disposition home or self-care (01) ==
LOC: ED 20:08 → 3A 10-26 00:25
PROVIDERS: ADMIT Internal Medicine Geriatric Medicine; ATTEND Internal Medicine
DX: J96.01 Acute respiratory failure with hypoxia (principal); Z20.822 Contact with and (suspected) exposure to COVID-19; R65.10 Systemic inflammatory response syndrome (SIRS) of non-infectious origin without acute organ dysfunction; J98.01 Acute bronchospasm; R07.89 Other chest pain; E66.9 Obesity, unspecified; F17.210 Nicotine dependence, cigarettes, uncomplicated; Z68.37 Body mass index [BMI] 37.0-37.9, adult; Z79.899 Other long term (current) drug therapy; Z98.890 Other specified postprocedural states
CPT/HCPCS: 36415; 71045; 80048; 82728; 82947; 83615; 84145; 84484; 85007; 85025; 85379; 85610; 86140; 93005; 94640; 96365; 96366; 96367; 96372; 96375; 96376; 99291; 99406; G0378; J1650; J1956; J2920; J2930; J3475; J7030; U0003; 94644

== ENCOUNTER 2021-06-10 09:54 | Emergency (ER) | payer SELFPAY ==
[2021-06-10 10:00] VITALS: BP 120/81
[2021-06-10] MEDS ORDERED: HYOSCYAMINE SUBL 0.125 MG TAB SL ONE (11:01)
[2021-06-10] MEDS ORDERED: SODIUM CHLORIDE 0.9% 1000 ML 1,000 ML IV ONE (11:01)
[2021-06-10] MEDS ORDERED: ONDANSETRON 4 MG/2 ML INJ IV ONE (11:01)
--- NOTE | 2021-06-10 11:04 | Emergency Department Report ---
ED N/V/D HPI - General Chief complaint: Weakness Stated complaint: NAUSEA AND VOMITING Time Seen by Provider: 06/10/21 10:55 Source: patient Mode of arrival: Ambulatory Limitations: No Limitations - History of Present Illness Initial comments: Patient is a 30-year-old male presents emergency room complaints of nausea, vomiting, diarrhea that began 4 days ago. He has associated upper abdominal pain. Patient states he was also having a fever but that has resolved. Patient states that he went to a concert and several people ended up getting sick after the concert. He has not been vaccinated for COVID-19. he states he has only been able to tolerate water. He has not been tested for COVID-19 since becoming sick. He denies any chest pain, shortness of breath, cough, sore throat, ear pain. Past medical history of asthma. Allergy to amoxicillin and shellfish. - Related Data Previous Rx's Medication Instructions Recorded Last Taken Type Butalb/Acetamin/Caff 50-325-40 1 tab PO Q8HR PRN #12 tablet 03/25/16 Unknown Rx [Fioricet 50-325-40] hydrOXYzine HCL [Hydroxyzine HCl] 10 mg PO QHS #20 tablet 10/25/17 Unknown Rx Albuterol Mdi (or & Nicu Only) 1 - 2 puff IH Q6H PRN #1 inhalation 10/27/20 Unknown Rx [ProAir HFA Inhaler] Fluticasone Propion/Salmeterol 1 each IH BID #1 aer.pw.bas 10/27/20 Unknown Rx [Airduo Digihaler 113-14 Mcg] Montelukast [Singulair] 10 mg PO QPM #14 tablet 10/27/20 Unknown Rx Prednisone [predniSONE 10 mg 10 mg PO .TAPER #21 tab.ds.pk 10/27/20 Unknown Rx (6-Day Pack, 21 Tabs)] Hyoscyamine Subl [Levsin Sl 0.125 0.125 mg SL Q6HR PRN #10 tab 06/10/21 Unknown Rx TAB] Ondansetron [Zofran Odt] 4 mg PO Q8HR PRN #10 tab.rapdis 06/10/21 Unknown Rx Allergies Allergy/AdvReac Type Severity Reaction Status Date / Time amoxicillin AdvReac Swelling Verified 06/15/14 09:46 shellfish derived AdvReac Swelling Verified 06/15/14 09:46 ED Review of Systems ROS: Stated complaint: NAUSEA AND VOMITING Other details as noted in HPI Comment: All other systems reviewed and negative ED Past Medical Hx - Past Medical History Previous Medical History?: Yes Hx Congestive Heart Failure: No Hx Diabetes: No Hx Asthma: Yes Hx COPD: No Hx HIV: No - Surgical History Past Surgical History?: No - Social History Smoking Status: Never Smoker - Medications Home Medications: Home Medications Medication Instructions Recorded Confirmed Last Taken Type Butalb/Acetamin/Caff 50-325-40 1 tab PO Q8HR PRN #12 tablet 03/25/16 10/26/20 Unknown Rx [Fioricet 50-325-40] hydrOXYzine HCL [Hydroxyzine HCl] 10 mg PO QHS #20 tablet 10/25/17 10/26/20 Unknown Rx Albuterol Mdi (or & Nicu Only) 1 - 2 puff IH Q6H PRN #1 inhalation 10/27/20 Unknown Rx [ProAir HFA Inhaler] Fluticasone Propion/Salmeterol 1 each IH BID #1 aer.pw.bas 10/27/20 Unknown Rx [Airduo Digihaler 113-14 Mcg] Montelukast [Singulair] 10 mg PO QPM #14 tablet 10/27/20 Unknown Rx Prednisone [predniSONE 10 mg 10 mg PO .TAPER #21 tab.ds.pk 10/27/20 Unknown Rx (6-Day Pack, 21 Tabs)] Hyoscyamine Subl [Levsin Sl 0.125 0.125 mg SL Q6HR PRN #10 tab 06/10/21 Unknown Rx TAB] Ondansetron [Zofran Odt] 4 mg PO Q8HR PRN #10 tab.rapdis 06/10/21 Unknown Rx ED Physical Exam - General Limitations: No Limitations General appearance: alert, in no apparent distress - Head Head exam: Present: atraumatic, normocephalic - Eye Eye exam: Present: normal appearance - ENT ENT exam: Present: mucous membranes moist - Respiratory Respiratory exam: Present: normal lung sounds bilaterally. Absent: respiratory distress, wheezes, rales, rhonchi, stridor, chest wall tenderness, accessory muscle use, decreased breath sounds, prolonged expiratory - Cardiovascular Cardiovascular Exam: Present: regular rate, normal rhythm, normal heart sounds. Absent: systolic murmur, diastolic murmur, rubs, gallop - GI/Abdominal GI/Abdominal exam: Present: soft, tenderness (epigastric, LUQ), normal bowel sounds. Absent: distended, guarding, rebound, rigid - Neurological Exam Neurological exam: Present: alert, oriented X3 - Psychiatric Psychiatric exam: Present: normal affect, normal mood - Skin Skin exam: Present: warm, dry, intact ED Course Vital Signs 06/10/21 09:58 Temperature 98 F Pulse Rate 71 Respiratory 16 Rate Blood Pressure 120/81 [Left] O2 Sat by Pulse 97 Oximetry ED Medical Decision Making - Lab Data Result diagrams: 06/10/21 11:18 06/10/21 11:18 Lab Results 06/10/21 06/10/21 Range/Units 11:18 11:18 WBC 2.9 L (4.5-11.0) K/mm3 RBC 5.80 H (3.65-5.03) M/mm3 Hgb 17.7 H (11.8-15.2) gm/dl Hct 54.4 H (35.5-45.6) % MCV 94 (84-94) fl MCH 31 (28-32) pg MCHC 33 (32-34) % RDW 13.2 (13.2-15.2) % Plt Count 224 (140-440) K/mm3 [place] % (Auto) Analysis Specialist Sodium 138 (137-145) mmol/L Potassium 3.4 L (3.6-5.0) mmol/L Chloride 99.4 (98-107) mmol/L Carbon Dioxide 23 (22-30) mmol/L Anion Gap 19 mmol/L BUN 16 (9-20) mg/dL Creatinine 0.8 (0.8-1.3) mg/dL Estimated GFR > 60 ml/min BUN/Creatinine Ratio 20 % Glucose 83 (75-100) mg/dL Calcium 8.5 (8.4-10.2) mg/dL Total Bilirubin 0.30 (0.1-1.2) mg/dL AST 22 (5-40) units/L ALT 20 (7-56) units/L Alkaline Phosphatase 78 (35-129) units/L Total Protein 7.3 (6.3-8.2) g/dL Albumin 4.5 (3.9-5) g/dL Albumin/Globulin Ratio 1.6 % Lipase 16 (13-60) units/L - Radiology Data Radiology results: report reviewed Ordering Physician: AVERY CHUNG Date of Service: 06/10/21 Procedure(s): CT abdomen pelvis w con Accession Number(s): [id number] cc: AVERY CHUNG CT ABDOMEN AND PELVIS WITH CONTRAST HISTORY: LUQ and epigastric abd pain, n/v/d. COMPARISON: None. TECHNIQUE: CT images of the abdomen and pelvis were obtained following administration of intravenous contrast. All CT scans at this location are performed using CT dose reduction for [employer] by means of automated exposure control. CONTRAST: 100 ml of intravenous contrast administered. FINDINGS: Lungs/bones: Lung bases are clear. No acute osseous abnormality identified. There is a bone lesion in the proximal right femoral diaphysis extending to the metaphysis with mild expansion and internal groundglass appearance. 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 Abdomen/pelvis: The liver is mildly enlarged with no focal mass identified. The gallbladder, spleen, pancreas, adrenals, kidneys, and proximal GI tract appear unremarkable. Urinary bladder is mostly collapsed but grossly unremarkable. Prostate is normal. No pelvic free fluid. No acute colonic abnormality identified. The appendix is normal. IMPRESSION: 1. No acute abnormality identified. 2. Incidental findings as above. Signer Name: Rasheed Wayne MD Signed: 06/10/2021 3:20 PM Workstation Name: [id number] Transcribed By: JW Dictated By: Rasheed Wayne MD Electronically Authenticated By: Rasheed Wayne MD Signed Date/Time: 06/10/21 1520 DD/ 1518 TD/TT: - Medical Decision Making Patient is a 30-year-old male presents emergency room complaints of nausea, vomiting, diarrhea that began 4 days ago. He has associated upper abdominal pain. Patient states he was also having a fever but that has resolved. Patient states that he went to a concert and several people ended up getting sick after the concert. He has not been vaccinated for COVID-19. he states he has only been able to tolerate water. He has not been tested for COVID-19 since becoming sick. He denies any chest pain, shortness of breath, cough, sore throat, ear pain. Past medical history of asthma. Allergy to amoxicillin and shellfish. Vitals are normal. On exam patient has epigastric and left upper quadrant tenderness palpation, no guarding, no rebound, no rigidity, no peritoneal signs. Labs with mild hypokalemia, repleted with K-Dur, otherwise stable. CT abdomen pelvis with IV contrast: 1. No acute abnormality identified. 2. Incidental findings as above. Patient given medications while in emergency department with improvement of his symptoms and he was able to tolerate p.o. intake and had no further episodes of vomiting or diarrhea. Patient is presenting with the symptoms during COVID-19 pandemic, discussed possibility of COVID-19 with patient, discussed outpatient testing, discussed self quarantine, discussed return precautions. Advised patient please take medication as prescribed. Increase your fluid intake. Eat a bland liquid diet and still advance your diet as tolerated. Follow-up with a primary care doctor. Follow-up with orthopedic doctor. Return to emergency room for any new or worsening symptoms. Recommend outpatient COVID-19 testing and if positive will need to self quarantine for 10 days from onset of symptoms. Critical care attestation.: If time is entered above; I have spent that time in minutes in the direct care of this critically ill patient, excluding procedure time. ED Disposition Clinical Impression: Nausea vomiting and diarrhea, Bone lesion Abdominal pain Qualifiers: Abdominal location: epigastric Qualified Code(s): R10.13 - Epigastric pain Disposition: 01 HOME / SELF CARE / HOMELESS Is pt being admited?: No Does the pt Need Aspirin: No Condition: Stable Instructions: Viral Gastroenteritis, Adult Additional Instructions: please take medication as prescribed. Increase your fluid intake. Eat a bland liquid diet and still advance your diet as tolerated. Follow-up with a primary care doctor. Follow-up with orthopedic doctor. Return to emergency room for any new or worsening symptoms. Recommend outpatient COVID-19 testing and if positive will need to self quarantine for 10 days from onset of symptoms. Prescriptions: Hyoscyamine Subl [Levsin Sl 0.125 TAB] 0.125 mg SL Q6HR PRN #10 tab PRN Reason: diarrhea/abdominal cramping Ondansetron [Zofran Odt] 4 mg PO Q8HR PRN #10 tab.rapdis PRN Reason: nausea/vomiting Referrals: BILLY WOMACK MD [Primary Care Provider] - 3-5 Days ANNA BOATENG MD [Staff Physician] - 3-[address] [facility] [Provider Group] - 3-5 Days RAFAEL WHITTAKER MD [Staff Physician] - 3-5 Days Time of Disposition: 15:32 Print Language: TURKMEN
[2021-06-10 11:51] LABS: Hematocrit 54.4 % (35.5-45.6); Hemoglobin 17.7 gm/dl (11.8-15.2); Mean Corpuscular HGB Conc 33 % (32-34); Mean Corpuscular Volume 94 fl (84-94); Platelet Count 224 K/mm3 (140-440); Red Cell Distribution Width 13.2 % (13.2-15.2)
[2021-06-10 12:05] LABS: Alanine Aminotransferase 20 units/L (7-56); Albumin 4.5 g/dL (3.9-5); BUN/Creatinine Ratio 20; Blood Urea Nitrogen 16 mg/dL (9-20); Calcium 8.5 mg/dL (8.4-10.2); Hemolysis Index 9
[2021-06-10] MEDS ORDERED: POTASSIUM CHLORIDE ER 20 MEQ TAB PO ONE (12:08)
--- NOTE | 2021-06-10 15:25 | Cat Scan Report ---
CT ABDOMEN AND PELVIS WITH CONTRAST HISTORY: LUQ and epigastric abd pain, n/v/d. COMPARISON: None. TECHNIQUE: CT images of the abdomen and pelvis were obtained following administration of intravenous contrast. All CT scans at this location are performed using CT dose reduction for [employer] by means of automated exposure control. CONTRAST: 100 ml of intravenous contrast administered. FINDINGS: Lungs/bones: Lung bases are clear. No acute osseous abnormality identified. There is a bone lesion i n the proximal right femoral diaphysis extending to the metaphysis with mild expansion and internal g roundglass appearance. 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 Abdomen/pelvis: The liver is mildly enlarged with no focal mass identified. The gallbladder, spleen, pancreas, adrenals, kidneys, and proximal GI tract appear unremarkable. Urinary bladder is mostly collapsed but grossly unremarkable. Prostate is normal. No pelvic free flui d. No acute colonic abnormality identified. The appendix is normal. IMPRESSION: 1. No acute abnormality identified. 2. Incidental findings as above. Signer Name: Rasheed Wayne MD Signed: 06/10/2021 3:20 PM Workstation Name: [id number]
[2021-06-10 18:46] LABS: Band Neutrophils # (Manual) 0.1 K/mm3; Platelet Estimate Consistent w Auto; RBC Morphology Normal; Total Cells Counted 100
== END 2021-06-10 19:06 | disposition home or self-care (01) ==
LOC: ED 09:54
DX: R11.2 Nausea with vomiting, unspecified (principal); R19.7 Diarrhea, unspecified; M89.9 Disorder of bone, unspecified; R10.9 Unspecified abdominal pain; J45.909 Unspecified asthma, uncomplicated; Z88.1 Allergy status to other antibiotic agents; Z91.013 Allergy to seafood
CPT/HCPCS: 36415; 74177; 80053; 83690; 85007; 85025; 96361; 96374; 99284; J2405; J7030; Q9967; Q0162